=== PATIENT | female | born 1950 | race Caucasian/White ===

== ENCOUNTER 2019-09-10 02:56 | Emergency (ER) | payer MEDICARE, SELFPAY ==
[2019-09-10 02:55] VITALS: BP 148/78; PULSE 78; RESP 18; TEMP 36.3; O2SAT 100
--- NOTE | 2019-09-10 03:04 | ED.GENADULT ---
HPI - General Adult General Chief complaint: Abdominal Pain Stated complaint: abd Time Seen by Provider: 09/10/19 03:04 History of Present Illness HPI narrative: EMS called to her house for abdominal pain. She was reportedly on the ground in the bathroom in too much pain to get up. When EMS arrived to her house the pain had nearly resolved, but she asked to be transported anyway. She was fine for most of the ride, then became nauseated just before arriving her. On my arrival to the room she denies any pain or nausea. She says only the she does not feel well, but she denies any specific complaints. Family states that she has had one prior episode like this, which was determined to be a panic attack. Related Data Home Medications Medication Instructions Recorded Confirmed cholecalciferol (vitamin D3) 50 2,000 unit PO DAILY 06/26/19 mcg (2,000 unit) tablet fluticasone fur. 100 mcg-umeclid 1 inhalation INHALATION Q24H 06/26/19 62.5 mcg-vilant 25 mcg inhalat.powder trazodone 50 mg tablet 50 mg PO TID 06/26/19 Allergies Allergy/AdvReac Type Severity Reaction Status Date / Time Penicillins Allergy Unknown Skin Verified 06/26/19 08:45 Reaction Sulfa (Sulfonamide Allergy Unknown Skin Verified 06/26/19 08:45 Antibiotics) Reaction Shrimp Allergy Intermediate RASH Uncoded 06/26/19 08:45 Contrast Media Allergy Unknown RASH Uncoded 06/26/19 08:45 Review of Systems Review of Systems: All systems reviewed & are unremarkable except as noted in HPI and below Constitutional: Constitutional: Denies fever(s) Eyes: Eyes: Denies change in vision Cardiovascular: Cardiovascular: Denies chest pain Respiratory: Respiratory: Denies dyspnea Gastrointestinal: Gastrointestinal: Reports abdominal pain (resolved), Reports nausea (resolved) and Denies vomiting Genitourinary: Genitourinary: Denies dysuria Neurologic: Denies syncope and Denies weakness [facility] Surgical History Surgical History H/O discectomy History of appendectomy Hx of cholecystectomy Family History Family History Father Hypertension Family history of cardiovascular disease Mother Hypertension Family history of elevated blood lipids Social History Social History Smoking status: Former smoker Alcohol intake: never Exam Const: General: no acute distress and alert Nutritional Appearance: thin Orientation/consciousness: patient oriented x3 HENMT: Head: normal to inspection Eyes: Conjunctivae: conjunctivae normal Pupils: Equal, round and reactive pupils present EOM: EOMs intact bilaterally Resp: Effort & Inspection: normal respiratory effort Auscultation: clear to auscultation bilaterally Cardio: Rate: regular rate Rhythm: regular rhythm GI: GI Palp: Yes Soft to palpation and No Tenderness to palpation present (GI) Skin: General skin exam: normal color Neuro: General: patient oriented x3 and moves all extremities Speech: normal speech Extrem: General: normal to inspection Course Vital Signs Vital signs: Vital Signs Temperature 36.3 C L 09/10/19 02:55 Pulse Rate 78 09/10/19 02:55 Respiratory Rate 18 09/10/19 02:55 Blood Pressure 148/78 H 09/10/19 02:55 Pulse Oximetry 100 09/10/19 02:55 Temperature 36.3 C L 09/10/19 02:55 Pulse Rate 84 09/10/19 05:10 Respiratory Rate 17 09/10/19 05:10 Blood Pressure 123/86 09/10/19 05:10 Pulse Oximetry 99 09/10/19 05:10 Medical Decision Making MDM Narrative Medical decision making narrative: Labs unremarkable. She has been asymptomatic since arrival. Family agrees that she seems to be her normal self. Medical Records Medical records reviewed: Yes I reviewed the patient's medical records. Vital Signs Vital Signs: Vital Signs Temperature 36.3 C L 09/10/19 02:55 Pulse Rate
[2019-09-10 03:22] LABS: Basophils Percent Auto 0.7 % (0.2-1.2); Eosinophils Absolute Auto 0.2 K/mm3 (0-0.3); Eosinophils Percent Auto 3.3 % (0-4.4); Hematocrit 32.5 % (37.0-47.0); Hemoglobin 10.2 g/dL (12.0-15.0); Immature Granulocyte Absolute 0.02 K/mm3 (0.00-0.031); Immature Granulocyte Percent A 0.3 % (0-0.5); Lymphocytes Absolute Auto 1.25 K/mm3 (0.9-3.2); Lymphocytes Percent Auto 21.4 % (18.3-44.2); Mean Corpuscular HGB Conc 31.4 g/dl (32-36); Mean Corpuscular Hemoglobin 26.5 pg (26-34); Mean Corpuscular Volume 84.4 fl (80-100); Mean Platelet Volume 11.2 fl (7.4-10.4); Monocytes Absolute Auto 0.6 K/mm3 (0.1-0.6); Monocytes Percent Auto 9.4 % (2.6-8.5); Neutrophils Absolute Auto 3.8 K/mm3 (1.3-6.7); Neutrophils Percent Auto 64.9 % (45.5-73.1); Platelet Count Result 272 k/mm3 (150-375); Red Blood Count 3.85 M/mm3 (4.2-5.4); White Blood Count 5.8 K/mm3 (4.5-10.0)
[2019-09-10 03:34] LABS: Alanine Aminotransferase 18 U/L (4-35); Albumin Level 4.3 g/dL (3.5-5.1); Alkaline Phosphatase 86 U/L (38-126); Aspartate Amino Transferase 29 U/L (14-36); Bilirubin,Total 0.2 mg/dL (0.2-1.3); Blood Urea Nitrogen 11 mg/dL (7-17); Calcium 9.3 mg/dL (8.4-10.2); Carbon Dioxide 25 mmol/L (22-30); Chloride 105 mmol/L (98-107); Estimated CRCL calculation 39 ml/min; Estimated Glomerular Filt Rate > 60; Glucose 110 mg/dL (65-105); Lipase 91 U/L (23-300); Potassium 3.9 mmol/L (3.4-5.0); Sodium 139 mmol/L (137-145)
[2019-09-10 04:14] LABS: Add Urine Microscopic? YES; Appearance Urine Clear (Clear); Bilirubin Urine Negative (Negative); Blood Urine Negative (Negative); Color Urine Yellow (Yellow); Glucose Urine UA Negative (Negative); Ketones Urine Negative (Negative); Leukocyte Esterase Ur Negative LEU/UL (Negative); Mucus Urine Rare /lpf; Nitrate Urine Negative (Negative); Protein Urine 1+ mg/dL (Negative); RBC Urine 0-2 /hpf (0-2); Specific Grav Ur 1.023 (1.001-1.035); Squamous Epithelial Cell Urine Rare /hpf (Few); Urobilinogen Urine Negative mg/dL (<2.0); WBC Urine 0-3 /hpf
[2019-09-10 05:10] VITALS: BP 123/86; PULSE 84; RESP 17; O2SAT 99
== END 2019-09-10 05:15 | disposition home or self-care (01) ==
PROVIDERS: Emergency Provider Emergency Medicine; PCP Family Medicine
DX: F41.0 Panic disorder [episodic paroxysmal anxiety] (principal)
CPT/HCPCS: 36415; 80053; 81001; 83690; 85025; 99283

== ENCOUNTER → 2020-12-24 09:24 | Outpatient (CLI) | payer MEDICARE, SELFPAY ==
--- NOTE | ~2020-12-24 | XR_ITS ---
EXAMINATION: XR lumbar spine 6V w bending EXAM DATE: 12/24/2020 10:01 INDICATION: M54.9 - Dorsalgia, unspecified. TECHNIQUE: Lumber spine frontal, lateral, bilateral oblique projections. Coned down frontal and lat eral L5-S1 lumbar projections for interpretation. Additional lateral flexion and lateral extension pr ojections obtained. Comparison is made to prior examination from 12/08/2014. FINDINGS: There is L5-S1 posterior and interbody fusion. There is grade 2 anterolisthesis L4 on L5 on all the lateral projections. The right pars is confirmed intact, left obscured from hardware an obli que projection. There is similar amount of anterolisthesis on prior x-ray from 2014. There is severe loss of L4-5 disc height. Levels above this are well-maintained. Probable cholecystectomy clips. Sacr um, sacroiliac joints, sacral arcuate lines are intact. Probably advanced L4-5 facet arthropathy. Oth erwise mild lumbar facet arthropathy. Difficult to appreciate any significant interval change compare d to prior study. IMPRESSION: 1. L5-S1 fusion. 2. L4-5 advanced spondylosis, grade 2 anterolisthesis. Reviewed, dictated and finalized at location B.
== END ==
PROVIDERS: PCP Family Medicine; Visit Provider Family Medicine
DX: R29.898 Other symptoms and signs involving the musculoskeletal system (principal); Z98.1 Arthrodesis status; M47.816 Spondylosis without myelopathy or radiculopathy, lumbar region
CPT/HCPCS: 72114

== ENCOUNTER → 2021-02-27 09:46 | Outpatient (CLI) | payer MEDICARE, SELFPAY ==
--- NOTE | ~2021-02-27 | DEXA_ITS ---
Bone Density Report Name: Oliva Zapata Age: 70 Sex: Female Ethnicity: White Date of : 1950 Indication: postmenopausal; screening for osteoporosis; height loss; anorexia or bulimia; asthma or emphysema; Referring Provider: Bhupinder Soto Study: Bone densitometry was performed. Exam Date: February 27, 2021 Accession number: [id number] Bone Density: Region BMD T-score Z-score Classification AP Spine (L1, L2, L3) 0.809 -1.9 0.2 Osteopenia Femoral Neck (Left) 0.450 -3.6 -1.8 Osteoporosis Total Hip (Left) 0.565 -3.1 -1.5 Osteoporosis Femoral Neck (Right) 0.467 -3.4 -1.6 Osteoporosis Total Hip (Right) 0.594 -2.9 -1.3 Osteoporosis Total Hip Mean 0.580 -3.0 -1.4 Osteoporosis World Health Organization criteria for BMD impression classify patients as: Normal (T-score at or above -1.0), Osteopenia (T-score between -1.0 and -2.5), or Osteoporosis (T-score at or below -2.5). 10-year Fracture Risk: FRAX not reported because: Some T-score for Spine Total or Hip Total or Femoral Neck at or below -2.5 Clinical Information Provided by Patient: Has the following medical conditions: Anorexia or Bulimia, Asthma or Emphysema Patient maximum height was 62 Menopause Age: 40 No regular weight bearing exercise Drinks caffeinated beverages Onset of menses at age 15 Number of children 2 Impression: The patient has osteoporosis, based on the Left Femoral Neck T-score. Discussion: INCREASED RISK OF FRACTURE. BONE DENSITY IS UNDESIRABLY LOW AT ONE OR MORE SKELETAL SITES, CONSISTENT WITH POSTMENOPAUSAL OSTEOPOROSIS. This patient's lowest T-score meets the World Health Organization's (WHO) criteria for osteoporosis at one or more sites (T-score -2.5 or below). In untreated patients, the risk of osteoporotic fracture increases approximately two-fold for each 1.0 SD decrease in T-score. Low bone density is not the only risk factor for fracture; also consider factors such as patient's age, frailty or poor health, risk of falling, risk of injury, previous osteoporotic fracture, family history of osteoporosis, cigarette smoking, low body weight, etc. Not everyone with low bone mineral density has osteoporosis; osteomalacia and other metabolic bone disorders should also be considered. Patients who have osteoporosis should be evaluated for specific diseases and conditions (secondary causes) that may cause or contribute to bone loss. The [place] [employer]ocrinologists (AACE) and National Osteoporosis Foundation (NOF) recommend pharmacologic intervention for all postmenopausal women whose T-score is in this range. The patient should follow a healthful lifestyle (good nutrition with adequate calcium and vitamin D, and appropriate weight-bearing exercise). Follow-Up: Consider a repeat BMD and Vertebral Fracture Assess
--- NOTE | ~2021-02-27 | MM_ITS ---
EXAMINATION: MM screening rose BI w suzi HISTORY: Screening TECHNIQUE: Craniocaudal and mediolateral oblique 3-D tomosynthesis images were obtained and synthetic 2-D images were generated. CAD analysis was submitted and interpreted. COMPARISON: Comparison to multiple prior studies sequentially, with oldest reviewed study dated 03/17. BREAST PARENCHYMAL COMPOSITION: The breasts are heterogenously dense, which may obscure small masses FINDINGS: There is no evidence of suspicious mass, calcification, or architectural distortion to sugg est malignancy in either breast. There has been no suspicious interval change. IMPRESSION: 1. No mammographic evidence of malignancy. 2. Recommend routine screening mammography in one year. BI-RADS Category 1: Negative Reviewed, dictated and finalized at location A.
== END ==
PROVIDERS: PCP Family Medicine; Visit Provider Family Medicine
DX: Z12.31 Encounter for screening mammogram for malignant neoplasm of breast (principal); Z78.0 Asymptomatic menopausal state; M81.0 Age-related osteoporosis without current pathological fracture
CPT/HCPCS: 77063; 77067; 77080

== ENCOUNTER → 2021-08-23 07:37 | Outpatient (CLI) | payer MEDICARE, SELFPAY ==
--- NOTE | ~2021-08-23 | MR_ITS ---
EXAMINATION: MR brain/brain stem wo con DATE: 08/23/2021 08:28 INDICATION: Other abnormalities of gait and mobility. TECHNIQUE: Magnetic resonance imaging (MRI) of the brain and brainstem was performed without intraven ous contrast. Sequences included sagittal and axial T1-weighted FSE, axial diffusion-weighted FS EPI, axial T2*-weighted GRE, axial T2-weighted FLAIR Propeller, and axial T2-weighted Propeller. Apparent diffusion coefficient (ADC) maps were created. COMPARISON: None. FINDINGS: There is chronic encephalomalacia with old blood products involving the left basal ganglia and internal capsule. There are scattered areas of nonspecific increased T2-weighted signal intensity in the cerebral white matter and rony, which is within normal limits for the patient's age. There is no acute intracranial hemorrhage, acute infarction, or abnormal intracranial mass lesion. The ventri cles are normal in size. The orbits are normal. There is mild mucosal thickening in the paranasal sin uses. The mastoid air cells are normal. IMPRESSION: 1. Chronic encephalomalacia with old blood products involving the left basal ganglia and left interna l capsule. Reviewed, dictated and finalized at location A. 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 Chronic encephalomalacia with old blood products involving the left basal ga nglia and left internal capsule.
== END ==
PROVIDERS: PCP Family Medicine; Visit Provider Family Medicine
DX: R26.89 Other abnormalities of gait and mobility (principal); G93.89 Other specified disorders of brain
CPT/HCPCS: 70551

== ENCOUNTER 2021-12-07 08:01 | Outpatient (CLI) | payer MEDICARE, SELFPAY ==
--- NOTE | ~2021-12-07 | MR_ITS ---
EXAMINATION: MR lumbar spine wo con DATE: 12/07/2021 09:05 INDICATION: Low back pain. TECHNIQUE: Magnetic resonance imaging (MRI) of the lumbar spine was performed without intravenous con trast. Sequences included sagittal T2-weighted FSE, sagittal T2-weighted FS FSE, sagittal T1-weighted FSE, and axial T2-weighted FSE. COMPARISON: Lumbar spine MRI 04/09/2015 FINDINGS: There is 10 mm anterolisthesis of L4 on L5. There are changes of anterior and posterior fus ion procedures at L5-S1 with interbody devices and pedicle screws. The right-sided interbody device e xtends 3 mm posterior to the endplate in the right lateral recess and right neural foramen. There is severely decreased disc height at T11-T12 with endplate remodeling. There is severely decreased disc height at L4-L5 with endplate remodeling including 2/5 height loss of L4 and 1/5 height loss of L5. T he L5 pedicle screws abut the inferior aspect of L4 vertebral body. The distal spinal cord signal int ensity is normal. The conus medullaris is at L1. The following disc levels are specifically discussed : T11-T12: There is a central protrusion. There is mild bilateral facet joint osteoarthritis. There is no neural foraminal stenosis. There is mild central canal stenosis. L1-L2: The disc does not extend beyond the endplate margin. There is mild bilateral facet joint osteo arthritis. There is no neural foraminal stenosis. There is no central canal stenosis. L2-L3: The disc is bulging. There is mild bilateral facet joint osteoarthritis. There is mild bilater al neural foraminal stenosis. There is no central canal stenosis. L3-L4: The disc is bulging. There is moderate bilateral facet joint osteoarthritis. There is mild enrico ateral neural foraminal stenosis. There is mild central canal stenosis. L4-L5: The disc does not extend beyond the endplate margin. There is severe bilateral facet joint ost eoarthritis. There is moderate bilateral neural foraminal stenosis. There is mild central canal steno sis. L5-S1: There is no facet joint hypertrophy. There is mild right neural foraminal stenosis. There is n o central canal stenosis. There is posterior decompression. IMPRESSION: 1. Severe lumbar spondylosis, stable from 04/09/2015. 2. Severe spondylosis at T11-T12, worsened from 04/09/2015. 3. Anterior and posterior fusion procedures at L5-S1. Reviewed, dictated and finalized at location B.
== END 2021-12-07 08:02 ==
LOC: MICIMG 08:02
PROVIDERS: PCP Family Medicine; Visit Provider Family Medicine
DX: M47.896 Other spondylosis, lumbar region (principal); Z98.1 Arthrodesis status
CPT/HCPCS: 72148

== ENCOUNTER 2022-01-24 16:21 | Emergency (ER) | payer MEDICARE, SELFPAY ==
[2022-01-24] VITALS (10 sets, daily range): BP systolic 118–130; BP diastolic 68–81; PULSE 83–95; RESP 15–30; TEMP 36.3; O2SAT 98–100
--- NOTE | ~2022-01-24 | XR_ITS ---
EXAMINATION: XR chest 1V portable Exam Date/Time: 01/24/2022 17:20 CDT HISTORY: dypnea, HX COPD, HX CVA, PT IS FEELING DIZZY Comparison: 04/08/2019. RESULT: Lines, tubes, and devices: None. Lungs and pleura: Clear. Cardiomediastinal silhouette: Stable cardiomediastinal silhouette. Other: No acute osseous or upper abdominal finding. IMPRESSION: No acute cardiopulmonary process. Reviewed, dictated and finalized at location K.
--- NOTE | ~2022-01-24 | CT_ITS ---
EXAMINATION: CT brain wo con DATE: 01/24/2022 17:41 INDICATION: vertigo and confusion hx of CVA . TECHNIQUE: Computed tomography (CT) of the head was performed without intravenous contrast. The mA wa s adjusted according to patient size. Iterative reconstruction technique was employed. The dose-lengt h product was 605.33 mGy-cm. COMPARISON: MR brain 08/23/2021 FINDINGS: No acute intracranial hemorrhage or extra-axial fluid collection. No hydrocephalus, mass, or herniation. No acute ischemic infarct. Unremarkable dural venous sinus attenuation. No acute osseous abnormality. The aerated spaces are clear. Moderate atrophy and mild chronic white matter change. Subtle malacia in the left basal ganglia and i nternal capsule. Atherosclerotic intracranial calcifications. IMPRESSION: No acute intracranial process. Reviewed, dictated and finalized at location K.
--- NOTE | 2022-01-24 16:45 | ECG_ITS ---
Measurements Intervals [place] Rate: 90 P: 68 MS: 189 QRS: 9 QRSD: 95 T: 17 QT: 361 QTc: 442 Interpretive Statements SINUS RHYTHM BORDERLINE T WAVE ABNORMALITY- ANT/INF LEADS BORDERLINE ECG Electronically Signed On 01-24-2022 20:49:10 CDT by Ken Rosenberg D.O.
[2022-01-24 17:05] LABS: Alveolar/Arterial O2 Gradient 28.5 mmHg; Carboxyhemoglobin 0.2 % THb (0-2.0); Fractional Inspired Oxygen 21 %; HCO3 ABG 23.4 mEq/l (22.0-26.0); Methemoglobin ABG 0.2 %THb (0-1.5); Oxygen Saturation ABG 95.4 % (95.0-100.0); Oxyhemoglobin 94.7 % THb (90.0-100.0); PCO2 ABG 37.8 mmHg (35.0-45.0); PO2 FiO2 Ratio Arterial Blood 3.62 %; Reduced Hemoglobin 4.9 %THb (0-5.0); Total Hemoglobin 11.2 g/dL (12.0-18.0)
[2022-01-24 17:06] LABS: Device ROOM AIR; Modified Allen's Test Pass; Site Drawn RIGHT RADIAL
--- NOTE | 2022-01-24 17:07 | ED.DIZZY ---
HPI - Dizziness General Chief Complaint: Dizziness Stated Complaint: Confusion, Difficulty Breathing Time Seen by Provider: 01/24/22 16:33 Source: patient and family History of Present Illness HPI Narrative: Patient presents with not feeling well. Patient was talking to family members around 12:00 and was acting normal per family she went to rest fell asleep and then woke up a little after 3:00 and reports feeling not right . Patient is having a hard time describing her symptoms. Reports she fell dizzy like she is off balance but she occasionally has that she denies any focal areas of pain she denies any shortness of breath or lightheadedness chest where she felt very confused during that time was unable to specific examples regarding her confusion. She did call family. Family noted on the phone she seemed like she is having a hard time breathing they came over to evaluate her and she seemed pale and was working very hard to breathe so they gave her a nebulized therapy and brought her to the ER for evaluation. They report at the time he arrived to the ER patient was feeling much better and they did consider just turning around and going home. Patient reports prior to today's events she was in her usual state of health denies any recent fevers, cough, congestion, nausea, vomiting, change appetite, diarrhea, urinary symptoms. Patient does report a history of CVA she is currently being evaluated as an outpatient and sees Dr. Moreno. She does have carotid ultrasound scheduled for next week Related Data Home Medications Medication Instructions Recorded Confirmed cholecalciferol (vitamin D3) 50 2,000 unit PO DAILY 06/26/19 08/16/21 mcg (2,000 unit) tablet Allergies Allergy/AdvReac Type Severity Reaction Status Date / Time Penicillins Allergy Unknown Skin Verified 01/24/22 16:37 Reaction Sulfa (Sulfonamide Allergy Unknown Skin Verified 01/24/22 16:37 Antibiotics) Reaction Shrimp Allergy Intermediate RASH Uncoded 01/24/22 16:37 Contrast Media Allergy Unknown RASH Uncoded 01/24/22 16:37 Review of Systems Review of Systems: CONSTITUTIONAL: Denies fever, chills, or sweats. EYES: Denies visual changes, redness, or discharge. ENT: Denies rhinorrhea, congestion, sore throat, or otalgia. CARDIOVASCULAR: Denies chest pain, palpitations, or edema. RESPIRATORY: Denies cough or dyspnea. GASTROINTESTINAL: Denies abdominal pain, nausea, vomiting, or diarrhea. GENITOURINARY: Denies dysuria or hematuria. SKIN: Denies rash or itching. MUSCULOSKELETAL: Denies back pain, joint pain, or myalgia. NEUROLOGIC: Denies headache, numbness, or weakness. PSYCHIATRIC: Denies anxiety or depression. All systems reviewed & are unremarkable except as noted in HPI and below PMFSH Surgical History Surgical History H/O discectomy History of appendectomy Hx of cholecystectomy Family History Family History Father Hypertension Family history of cardiovascular disease Mother Hypertension Family history of elevated blood lipids Social History Social History Social History: former smoker Smoking status: Former smoker Alcohol intake: former Substance use type: painkillers Gender identity (if verbalized by the patient): Female Exam Narrative: GENERAL: Well-appearing, well-nourished, and in no acute distress. HEAD: Normocephalic, atraumatic. EYES: PERRLA and EOMI. ENT: Nares clear, no rhinorrhea or epistaxis. Mucous membranes moist. NECK: Supple. No masses. No JVD CHEST: Clear to auscultation. No respiratory distress. No wheezes rales or rhonchi HEART: Regular rate and rhythm. No murmur heard. Normal peripheral pulses. ABDOMEN: Soft, nontender, nondistended, normal active bowel sounds. EXTREMITIES: Normal range of motion. No edema. SKIN: Warm, dry, no rash. NEURO
[2022-01-24 17:29] LABS: Basophils Percent Auto 0.8 % (0.2-1.2); Eosinophils Percent Auto 0.2 % (0-4.4); Hematocrit 33.3 % (37.0-47.0); Hemoglobin 10.4 g/dL (12.0-15.0); Immature Granulocyte Absolute 0.01 K/mm3 (0.00-0.031); Immature Granulocyte Percent A 0.2 % (0-0.5); Lymphocytes Absolute Auto 1.08 K/mm3 (0.9-3.2); Lymphocytes Percent Auto 20.8 % (18.3-44.2); Mean Corpuscular HGB Conc 31.2 g/dl (32-36); Mean Corpuscular Hemoglobin 27.4 pg (26-34); Mean Corpuscular Volume 87.6 fl (80-100); Mean Platelet Volume 10.7 fl (7.4-10.4); Monocytes Absolute Auto 0.5 K/mm3 (0.1-0.6); Monocytes Percent Auto 9.6 % (2.6-8.5); Neutrophils Absolute Auto 3.6 K/mm3 (1.3-6.7); Neutrophils Percent Auto 68.4 % (45.5-73.1); Platelet Count Result 254 k/mm3 (150-375); Red Cell Distribution Width 13.7 % (11.5-14.5); White Blood Count 5.2 K/mm3 (4.5-10.0)
[2022-01-24 17:43] LABS: Bacteria Urine 4+ /hpf; Mucus Urine Heavy /lpf; RBC Urine >75 /hpf (0-2); WBC Urine 16-20 /hpf
[2022-01-24 17:44] LABS: Add Urine Microscopic? YES; Appearance Urine Cloudy (Clear); Bilirubin Urine 1+ (Negative); Blood Urine 3+ (Negative); Color Urine Red (Yellow); Glucose Urine UA Negative (Negative); Ketones Urine Negative (Negative); Leukocyte Esterase Ur 2+ LEU/UL (Negative); Nitrate Urine Negative (Negative); Protein Urine Negative (Negative); pH Urine 6.5 (5.0-9.0)
[2022-01-24 17:47] LABS: Alanine Aminotransferase 12 U/L (6-35); Albumin Level 4.3 g/dL (3.5-5.1); Alkaline Phosphatase 73 U/L (38-126); Anion Gap 5 mmol/L (8-16); Aspartate Amino Transferase 23 U/L (14-36); Bilirubin,Total 0.1 mg/dL (0.2-1.3); Blood Urea Nitrogen 11 mg/dL (7-17); Calcium 8.7 mg/dL (8.4-10.2); Carbon Dioxide 26 mmol/L (22-30); Chloride 108 mmol/L (98-107); Estimated CRCL calculation 36 ml/min; Estimated Glomerular Filt Rate > 60; Glucose 106 mg/dL (65-110); Potassium 3.3 mmol/L (3.4-5.0); Sodium 139 mmol/L (137-145)
[2022-01-24 17:50] LABS: Glucose Point of Care 114 mg/dl (65-105)
[2022-01-24] MEDS: CEPHALEXIN 500 MG CAPSULE PO (18:36)
== END 2022-01-24 18:38 | disposition home or self-care (01) ==
PROVIDERS: Emergency Provider Emergency Medicine; PCP Family Medicine
DX: N39.0 Urinary tract infection, site not specified (principal); R41.0 Disorientation, unspecified; Z87.891 Personal history of nicotine dependence
CPT/HCPCS: 36415; 36600; 70450; 71045; 80053; 81001; 82375; 82805; 82948; 83050; 85025; 87077; 87086; 87186; 93005; 99284; A9270

== ENCOUNTER 2022-02-16 13:39 | Outpatient (CLI) | payer MEDICARE, SELFPAY ==
--- NOTE | ~2022-02-16 | US_ITS ---
EXAMINATION: US carotid duplex BI DATE: 02/16/2022 14:30 INDICATION: Cerebral infarct TECHNIQUE: Grayscale, color Doppler, and pulsed Doppler images of the cervical carotid arteries were obtained. The degree of vessel stenosis is placed in one of the following categories: normal, <50%, 5 0-69%, >=70% but less than near-occlusion, near-occlusion, or total occlusion. Note that percent sten osis relative to normal distal artery lumen diameter is indirectly measured from velocity measurement s as described by Samuel, et al. Radiology 2003; 229:340-346. COMPARISON: None. FINDINGS: RIGHT: The right common carotid artery (CCA) peak systolic velocity (PSV) is 94 cm/s. The right internal car otid artery (ICA) PSV is 101 cm/s. The right ICA end-diastolic velocity (EDV) is 40 cm/s. The right I CA/CCA PSV ratio is 1.1. Grayscale and color Doppler images yield an estimate of <50% diameter reduct ion from plaque in the ICA. The external carotid artery (ECA) PSV is 60 cm/s. There is antegrade flow in the right vertebral artery. LEFT: The left CCA PSV is 105 cm/s. The left ICA PSV is 142 cm/s. The left ICA EDV is 52 cm/s. The left ICA /CCA PSV ratio is 1.4. Grayscale and color Doppler images including secondary Doppler criteria yield an estimate of <50% diameter reduction from plaque in the ICA. The ECA PSV is 66 cm/s. There is anteg rade flow in the left vertebral artery. IMPRESSION: 1. <50% stenosis in the right internal carotid artery. 2. <50% stenosis in the left internal carotid artery. Reviewed, dictated and finalized at location A.
== END 2022-02-16 13:40 | disposition home or self-care (01) ==
PROVIDERS: PCP Family Medicine; Visit Provider Psychiatry & Neurology Neurology
DX: I63.9 Cerebral infarction, unspecified (principal); I65.23 Occlusion and stenosis of bilateral carotid arteries
CPT/HCPCS: 93880

== ENCOUNTER 2022-03-22 11:54 | Outpatient (CLI) | payer MEDICARE, SELFPAY ==
[2022-03-22 19:15] LABS: LDL Cholesterol Direct 85 mg/dL
[2022-03-22 19:34] LABS: Thyroid Stimulating Hormone 0.674 uIU/mL (0.465-4.680)
[2022-03-22 22:25] LABS: Anion Gap 0 mmol/L (8-16); Blood Urea Nitrogen 11 mg/dL (7-17); Carbon Dioxide 31 mmol/L (22-30); Chloride 105 mmol/L (98-107); Cholesterol 186 mg/dL (0-200); Estimated Glomerular Filt Rate 55; HDL Direct 59 mg/dL; Potassium 4.4 mmol/L (3.4-5.0); Sodium 136 mmol/L (137-145); Triglycerides 162 mg/dL (<150)
[2022-03-23 08:55] LABS: Glucose 57 mg/dL (65-110)
== END 2022-03-22 11:55 | disposition home or self-care (01) ==
LOC: ANHGOSHLAB 11:58
PROVIDERS: PCP Family Medicine; Visit Provider Family Medicine
DX: E87.6 Hypokalemia (principal); E03.9 Hypothyroidism, unspecified; E78.2 Mixed hyperlipidemia
CPT/HCPCS: 36415; 80048; 80061; 84443

== ENCOUNTER 2023-09-20 10:01 | Outpatient (CLI) | payer MEDICARE, SELFPAY ==
--- NOTE | ~2023-09-20 | CT_ITS ---
EXAMINATION: CT lung screening DATE: 09/20/2023 10:22 INDICATION: Z87.891 - Personal history of nicotine dependence TECHNIQUE: Computed tomography (CT) of the chest was performed without intravenous contrast. Addition al 3D reconstructions utilizing coronal maximum intensity projection (MIP) were performed. Automated exposure control and iterative reconstruction technique were employed. The dose-length product was 57 .16 mGy-cm. COMPARISON: None FINDINGS: There are small calcified nodules in the left upper and bilateral lower lobes consistent with old gra nulomatous disease. Additional 2 mm left upper lobe nodule which is not definitively calcified on ser ies 4, image 45. No pneumonia, pulmonary edema or pleural effusion. Heart size is normal. Atheroscler otic coronary artery calcific location and aortic valve calcific location. No pericardial effusion. T horacic aorta is normal in caliber. Moderate-sized sliding-type hiatal hernia. No pathologically enla rged thoracic lymphadenopathy. Cholecystectomy clips at the gallbladder fossa. Severe cervical and th oracic spondylosis. IMPRESSION: 1. Lung-RADS category 2: Benign appearance or behavior. Continue annual screening with noncontrast lo w-dose chest CT in 12 months. 2. Moderate-sized sliding-type hiatal hernia. Reviewed, dictated and finalized at location B. 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 Lung-RADS category 2: Benign appearance or behavior. Continue annual screeni ng with noncontrast low-dose chest CT in 12 months. 2. Moderate-sized sliding-type hiatal hernia.
== END 2023-09-20 10:02 | disposition home or self-care (01) ==
PROVIDERS: PCP Family Medicine; Visit Provider Physician Assistant
DX: Z12.2 Encounter for screening for malignant neoplasm of respiratory organs (principal); K44.9 Diaphragmatic hernia without obstruction or gangrene; Z87.891 Personal history of nicotine dependence
CPT/HCPCS: 71271

== ENCOUNTER 2023-10-02 08:28 | Emergency (ER) | payer MEDICARE, SELFPAY ==
--- NOTE | ~2023-10-02 | XR_ITS ---
EXAMINATION: XR thoracic spine 3V DATE: 10/02/2023 09:22 INDICATION: Left mid back pain post fall 2 days prior TECHNIQUE: One AP, lateral and lateral swimmer's views of the thoracic spine were obtained. COMPARISON: Chest CT dated 09/20/2023 FINDINGS: 15 degrees upper thoracic levoscoliosis with severe associated spondylosis. Mild to moderate spondylo sis in the more caudal thoracic spine. Chronic mild right-sided vertebral body height loss at T8 and mild left-sided vertebral body height loss at T6. Visualized portions of the lungs are clear with no pleural effusion or pneumothorax. Heart size is normal. Cholecystectomy clips in right upper quadrant . IMPRESSION: 1. 15 degrees upper thoracic levoscoliosis with severe spondylosis. 2. Chronic mild vertebral body height loss in the left at T6 and right at T8. No evident acute osseou s abnormality. Reviewed, dictated and finalized at location B. IMPRESSION: 1. 15 degrees upper thoracic levoscoliosis with severe spondylosis. 2. Chronic mild vertebral body height loss in the left at T6 and right at T8. N o evident acute osseous abnormality.
[2023-10-02 08:37] VITALS: BP 124/78; PULSE 66; PULSE 78; RESP 16; TEMP 36.8; O2SAT 100
[2023-10-02 08:46] VITALS: BP 136/88; PULSE 70; RESP 14; O2SAT 100
[2023-10-02] MEDS: IBUPROFEN 600 MG TABLET PO (08:50)
[2023-10-02 09:01] VITALS: BP 139/61; PULSE 75; RESP 16; O2SAT 100
--- NOTE | 2023-10-02 09:09 | ED.BACK ---
HPI - Back Pain/Injury General Chief Complaint: Back Pain/Injury Stated Complaint: left mid back pain, fell a couple days ago Time Seen by Provider: 10/02/23 08:33 History of Present Illness HPI Narrative: Patient is a 73-year-old female who presents ER with back pain. Midthoracic on the left sign. Worse with physical movement. She reports she was walking when she lost her balance and fell. She is unsure if she fell onto her bottom or directly onto her back. She reports pain has increased over last 2 days. It does improve when she takes ibuprofen. No lower extremity numbness or weakness. No difficulty with urination or defecation. Related Data Allergies Allergy/AdvReac Type Severity Reaction Status Date / Time Penicillins Allergy Unknown Skin Verified 09/13/23 13:45 Reaction Sulfa (Sulfonamide Allergy Unknown Skin Verified 09/13/23 13:45 Antibiotics) Reaction Shrimp Allergy Intermediate RASH Uncoded 09/13/23 13:45 Contrast Media Allergy Unknown RASH Uncoded 09/13/23 13:45 Review of Systems Constitutional: Constitutional: Reports no additional constitutional complaints Cardiovascular: Cardiovascular: Reports no additional cardiovascular complaints Respiratory: Respiratory: Reports no additional respiratory complaints Gastrointestinal: Gastrointestinal: Reports no additional gastrointestinal complaints Musculoskeletal: Musculoskeletal: Reports back pain, Denies arthralgias and Denies joint swelling [facility] Past Medical History Medical History Impaction of the bowels Left thalamic infarction Surgical History Surgical History H/O discectomy History of appendectomy Hx of cholecystectomy Family History Family History Father Hypertension Family history of cardiovascular disease Mother Hypertension Family history of elevated blood lipids Social History Social History (Updated 09/13/23 @ 13:47 by Damaris Worthington MA) Social History: former smoker Smoking status: Former smoker Alcohol intake: former Substance use type: painkillers Do You Feel Safe in your Home?: Yes Lack of Transportation: No Lack of Food: Never True Current Housing: I Have Housing Concerned About Future Housing: No Difficulty Paying Gas/Electric Bills: No Difficulty Paying for Meds: No Currently Unemployed: No Education: High School Diploma/GED Difficulty w/ Childcare or Family Care: No Gender identity (if verbalized by the patient): Female Exam Narrative: GENERAL: Well-appearing, well-nourished, and in no acute distress. HEAD: Normocephalic, atraumatic. ENT: Mucous membranes moist. CHEST: Clear to auscultation. No respiratory distress. HEART: Regular rate and rhythm. Normal peripheral pulses. Back: No midline tenderness at T/L-spine. There is tenderness on the left side of the back near T8. No bruising or abrasions. No step-offs to the spinal column. EXTREMITIES: Normal range of motion. No edema. SKIN: Warm, dry, no rash. NEURO: Alert and oriented x3. PSYCH: Normal mood and affect. Course Course Emergency Course: Discussed imaging results in chronic findings. Will manage discomfort with anti-inflammatories and muscle relaxers. Discharged home. Vital Signs Vital signs: Vital Signs Temperature 98.2 F 10/02/23 08:37 Pulse Rate 78 10/02/23 08:37 Respiratory Rate 16 10/02/23 08:37 Blood Pressure 124/78 10/02/23 08:37 Pulse Oximetry 100 10/02/23 08:37 Oxygen Delivery Room Air 10/02/23 08:37 Temperature 98.2 F 10/02/23 08:37 Pulse Rate 78 10/02/23 08:37 Respiratory Rate 16 10/02/23 08:37 Blood Pressure 124/78 10/02/23 08:37 Pulse Oximetry 100 10/02/23 08:37 Oxygen Delivery Room Air 10/02/23 08:37 MDM - Back Pain/Injury Imaging Data Radiologist
[2023-10-02 09:26] VITALS: BP 128/76; PULSE 76; RESP 14; O2SAT 100
[2023-10-02 09:31] VITALS: BP 126/76
[2023-10-02 10:01] VITALS: BP 125/71
== END 2023-10-02 10:24 | disposition home or self-care (01) ==
PROVIDERS: Emergency Provider Emergency Medicine; PCP Family Medicine
DX: S29.012A Strain of muscle and tendon of back wall of thorax, initial encounter (principal); Z87.891 Personal history of nicotine dependence; Z90.49 Acquired absence of other specified parts of digestive tract; M47.814 Spondylosis without myelopathy or radiculopathy, thoracic region; W18.39XA Other fall on same level, initial encounter
CPT/HCPCS: 72072; 99283; A9270

== ENCOUNTER 2023-10-02 22:40 | Emergency (ER) | payer MEDICARE, SELFPAY ==
--- NOTE | ~2023-10-02 | CT_ITS ---
EXAMINATION: CT thoracic lumbar wo con DATE: 10/02/2023 23:29 INDICATION: midline tenderness . TECHNIQUE: Computed tomography (CT) of the thoracic and lumbar spine was performed without intravenou s contrast. The dose-length product was 252.91 mGy-cm. COMPARISON: CT chest 09/20/2023; MR L-spine 12/07/2021 FINDINGS: THORACIC SPINE: Vertebral body alignment intact. Exaggerated thoracic kyphosis. Mild thoracic scoliosis. Vertebral arturo dy heights preserved. Multilevel moderate disc space narrowing. No traumatic malalignment or fracture . Visualized lung parenchyma is clear. Large hiatal hernia. Aortic valve and coronary artery calcific ations. 5 mm right lower lobe pulmonary nodule previously reported as a partially calcified granuloma in the prior CT lung screening exam. LUMBAR SPINE: Posterior lumbar fusion hardware at L5-S1. The inferior pedicle screws project beyond the anterior co rtex. Grade 2 anterolisthesis at L4-5. Severe degenerative disc disease at L4-5. Interbody fusion at L5-S1. 5 nonrib-bearing lumbar-type vertebral bodies. Pedicles intact. Vertebral body heights preserv ed. Moderate bilateral neural foraminal narrowing and central canal narrowing at L4-5. Mild facet art hropathy at L4-5. No traumatic malalignment or fracture. Diverticulosis. Atherosclerotic aortic and a rterial calcifications. Status post cholecystectomy. IMPRESSION: No acute fracture recommended malalignment in the thoracic or lumbar spine. No severe central canal or neural foraminal narrowing. Reviewed, dictated and finalized at location K.
[2023-10-02 22:43] VITALS: BP 149/55; PULSE 107; RESP 18; TEMP 36.3; O2SAT 100
--- NOTE | 2023-10-02 23:34 | ED.GENADULT ---
HPI - General Adult General Chief complaint: Back Pain/Injury Stated complaint: back pain Time Seen by Provider: 10/02/23 22:52 Source: patient Mode of arrival: ambulatory Limitations: no limitations History of Present Illness HPI narrative: This is a 73-year-old female who presents to the ED with chief complaint of mid to low back pain onset x3 days. Patient reports that she had initial injury where she fell onto the back. Reports the pain is just not going away. She was seen here earlier today with thoracic x-ray that did not show any acute findings. She tried taking the muscle relaxer with no relief. States that she was not able to get to sleep tonight so she is back here now. Denies fevers, chills, any further injury or site of pain. Denies numbness, weakness, bowel or bladder dysfunction, radicular symptoms. Related Data Allergies Allergy/AdvReac Type Severity Reaction Status Date / Time Penicillins Allergy Unknown Skin Verified 09/13/23 13:45 Reaction Sulfa (Sulfonamide Allergy Unknown Skin Verified 09/13/23 13:45 Antibiotics) Reaction Shrimp Allergy Intermediate RASH Uncoded 09/13/23 13:45 Contrast Media Allergy Unknown RASH Uncoded 09/13/23 13:45 Review of Systems Review of Systems: All systems as dictated in [facility] Past Medical History Medical History Impaction of the bowels Left thalamic infarction Surgical History Surgical History H/O discectomy History of appendectomy Hx of cholecystectomy Family History Family History Father Hypertension Family history of cardiovascular disease Mother Hypertension Family history of elevated blood lipids Social History Social History (Updated 09/13/23 @ 13:47 by Damaris Worthington MA) Social History: former smoker Smoking status: Former smoker Alcohol intake: former Substance use type: painkillers Do You Feel Safe in your Home?: Yes Lack of Transportation: No Lack of Food: Never True Current Housing: I Have Housing Concerned About Future Housing: No Difficulty Paying Gas/Electric Bills: No Difficulty Paying for Meds: No Currently Unemployed: No Education: High School Diploma/GED Difficulty w/ Childcare or Family Care: No Gender identity (if verbalized by the patient): Female Exam Narrative: GENERAL: Well-appearing, well-nourished, and in no acute distress. HEAD: Normocephalic, atraumatic. EYES: PERRLA and EOMI. ENT: Nares clear, no rhinorrhea or epistaxis. Mucous membranes moist. Oropharynx without tonsillar hypertrophy exudate or other lesions. NECK: Supple. No adenopathy or masses. CHEST: No respiratory distress. Clear to auscultation. No wheezes rales or rhonchi HEART: Regular rate and rhythm. No murmur heard. Normal peripheral pulses. ABDOMEN: Soft, nontender, nondistended, normal active bowel sounds. MSK: Midline tenderness to the thoracic and lumbar spine. No step-off or deformity. No bruising. SKIN: Warm, dry, no rash. NEURO: Alert and oriented x3. No focal deficits. 5/5 strength and sensation to the upper and lower extremities. PSYCH: Normal mood and affect. Course Vital Signs Vital signs: Vital Signs Temperature 97.4 F L 10/02/23 22:43 Pulse Rate 107 H 10/02/23 22:43 Respiratory Rate 18 10/02/23 22:43 Blood Pressure 149/55 H 10/02/23 22:43 Pulse Oximetry 100 10/02/23 22:43 Oxygen Delivery Room Air 10/02/23 22:43 Temperature 97.4 F L 10/02/23 22:43 Pulse Rate 107 H 10/02/23 22:43 Respiratory Rate 18 10/02/23 22:43 Blood Pressure 149/55 H 10/02/23 22:43 Pulse Oximetry 100 10/02/23 22:43 Oxygen Delivery Room Air 10/02/23 22:43 Medical Decision Making MDM Narrative Medical decision making narrative: This is a 73-year-old female who presents to the ED with c
[2023-10-02] MEDS: HYDROcodone/acetaminophen (*CRX) 5-325 MG TABLET 1 TAB PO (23:36)
[2023-10-02] MEDS: ACETAMINOPHEN 325 MG TABLET 650 MG PO (23:37)
== END 2023-10-03 00:24 | disposition home or self-care (01) ==
LOC: ANHED 10-03 00:15
PROVIDERS: Emergency Provider Physician Assistant; PCP Family Medicine
DX: S29.012A Strain of muscle and tendon of back wall of thorax, initial encounter (principal); S39.012A Strain of muscle, fascia and tendon of lower back, initial encounter; Z90.49 Acquired absence of other specified parts of digestive tract; Z87.891 Personal history of nicotine dependence
CPT/HCPCS: 72072; 72128; 72131; 99284; A9270

== ENCOUNTER 2024-06-26 02:11 | Observation (INO) | payer MEDICARE, SELFPAY ==
[2024-06-26] VITALS (15 sets, daily range): BP systolic 91–117; BP diastolic 50–63; PULSE 75–128; RESP 16–21; TEMP 36.7–38.4; O2SAT 95–100; BMI 19.1
--- NOTE | ~2024-06-26 | US_ITS ---
EXAMINATION: US right upper quadrant DATE: 06/26/2024 16:19 INDICATION: Abdominal pain. TECHNIQUE: Multiple grayscale and Doppler ultrasound images of the abdomen were obtained. COMPARISON: CT abdomen and pelvis 06/26/2024 FINDINGS: The visualized portions of the head and body of pancreas are normal. The liver is normal wi thout focal lesion. There is normal flow in main portal vein. The gallbladder is absent. The common d uct is normal and measures 8 mm. IMPRESSION: 1. Normal right upper quadrant ultrasound status post cholecystectomy. Reviewed, dictated and finalized at location A. GER UTILIZATION MANAGEMENT
--- NOTE | ~2024-06-26 | CT_ITS ---
EXAMINATION: CT brain wo con DATE: 06/28/2024 14:34 INDICATION: Confusion. Headache. TECHNIQUE: Computed tomography (CT) of the head was performed without intravenous contrast. The mA wa s adjusted according to patient size. Iterative reconstruction technique was employed. The dose-lengt h product was 605.33 mGy-cm. COMPARISON: Head CT 01/24/2022 FINDINGS: There is an old infarct involving the left basal ganglia and left internal capsule. There a re scattered areas of low attenuation in the cerebral white matter, which is within normal limits for the patient's age. There is no intracranial hemorrhage, acute infarction, or abnormal intracranial m ass lesion. The ventricles are normal in size. There is mild mucosal thickening in the paranasal sinu ses. The mastoid air cells are normal. The orbits are normal. IMPRESSION: 1. Old infarct involving the left basal ganglia and left internal capsule. Reviewed, dictated and finalized at location A. BASTING ARMHOLE BASTER
--- NOTE | ~2024-06-26 | CT_ITS ---
Non-contrast CT scan of the Abdomen and Pelvis Clinical indication: Abdominal pain Technique: 2.5 mm axial scans were obtained through the abdomen and pelvis without intravenous or or al contrast. Dose reduction technique was used on this scan by utilizing automated exposure control a nd iterative reconstruction technique. The dose-length product (DLP) was 205.50 mGy-cm. Findings: Images through the lung bases reveal patchy groundglass airspace disease in the visualized left lung, compatible with pneumonia. Visualized right lung base clear. Moderate hiatal hernia noted . There is no evidence of renal or ureteral calculi. The kidneys and the ureters are nondilated. The liver, spleen, pancreas, and adrenals appear normal. Cholecystectomy clips are present. There are atherosclerotic calcifications of the aorta. . There is no evidence of bowel obstruction. Images through the pelvis were performed. There is no evidence of ascites or lymphadenopathy. Urinary bladder unremarkable. No pelvic mass seen. There is 15 mm anterolisthesis of L4 over L5 with severe degenerative distended L4-L5. There is poste rior interbody fusion from L5 to S1. Impression: Patchy pneumonia throughout the visualized left lung. Moderate hiatal hernia. Reviewed, dictated and finalized at [facility]. 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 Moderate hiatal hernia.
--- NOTE | ~2024-06-26 | XR_ITS ---
Portable chest x-ray Comparison: 01/24/2022 Clinical History: Cough Findings: There is mild patchy groundglass opacity at the left lung. Right lung clear. Cardiomedias tinal silhouette is stable. Osseous structures intact. Moderate hiatal hernia. Impression: Patchy left lung pneumonia. Moderate hiatal hernia. Reviewed, dictated and finalized at [facility]. RESOURCE SPECIALIST Impression: Patchy left lung pneumonia. Moderate hiatal hernia.
[2024-06-26 02:31] LABS: Basophils Percent Auto 0.4 % (0.2-1.2); Eosinophils Absolute Auto 0.1 K/mm3 (0-0.3); Eosinophils Percent Auto 0.6 % (0-4.4); Hematocrit 40.2 % (37.0-47.0); Hemoglobin 12.9 g/dL (12.0-15.0); Immature Granulocyte Absolute 0.02 K/mm3 (0.00-0.031); Immature Granulocyte Percent A 0.2 % (0-0.5); Lymphocytes Absolute Auto 1.12 K/mm3 (0.9-3.2); Mean Corpuscular HGB Conc 32.1 g/dl (32-36); Mean Corpuscular Hemoglobin 29.5 pg (26-34); Mean Platelet Volume 10.7 fl (7.4-10.4); Monocytes Absolute Auto 0.3 K/mm3 (0.1-0.6); Monocytes Percent Auto 2.5 % (2.6-8.5); Neutrophils Absolute Auto 8.7 K/mm3 (1.3-6.7); Neutrophils Percent Auto 85.3 % (45.5-73.1); Platelet Count Result 232 k/mm3 (150-375); Red Blood Count 4.37 M/mm3 (4.2-5.4); Red Cell Distribution Width 13.1 % (11.5-14.5); White Blood Count 10.2 K/mm3 (4.5-10.0)
[2024-06-26] MEDS: ONDANSETRON INJ 4 MG/2 ML VIAL IV PUSH (02:56)
[2024-06-26] MEDS: MORPHINE SULFATE (*CRX) 4 MG/ML INJ 2 MG IV PUSH (02:56)
[2024-06-26] MEDS: SODIUM CHLORIDE 0.9% IV 1,000 ML 999 ML IV CONT (02:56)
[2024-06-26 03:00] LABS: Alanine Aminotransferase 16 U/L (6-35); Albumin Level 4.4 g/dL (3.5-5.1); Alkaline Phosphatase 94 U/L (38-126); Anion Gap 6 mmol/L (4-12); Aspartate Amino Transferase 32 U/L (14-36); Bilirubin,Total 0.6 mg/dL (0.2-1.3); Blood Urea Nitrogen 21 mg/dL (7-17); Calcium 9.8 mg/dL (8.4-10.2); Carbon Dioxide 27 mmol/L (22-30); Chloride 106 mmol/L (98-107); Estimated CRCL calculation 36 ml/min; Estimated Glomerular Filt Rate > 60; Glucose 126 mg/dL (65-110); Lipase 129 U/L (23-300); Potassium 4.3 mmol/L (3.4-5.0); Sodium 139 mmol/L (137-145)
[2024-06-26] MEDS: ACETAMINOPHEN 500 MG TABLET 1000 MG PO (03:10)
--- NOTE | 2024-06-26 03:37 | ED.GENADULT ---
HPI - General Adult General Chief complaint: Abdominal Pain Stated complaint: ABD PAIN Time Seen by Provider: 06/26/24 02:40 History of Present Illness HPI narrative: Patient 74-year-old female who presents to the emergency department with chief complaint of abdominal pain. The patient reports that started having some discomfort earlier today and reports that she has had some nausea and dry heaving the patient reports that she has had a prior cholecystectomy reports the pain is more right upper quadrant the patient reports no urinary symptoms denies diarrhea denies trauma Related Data Allergies Allergy/AdvReac Type Severity Reaction Status Date / Time Penicillins Allergy Unknown Skin Verified 04/26/24 16:14 Reaction Sulfa (Sulfonamide Allergy Unknown Skin Verified 04/26/24 16:14 Antibiotics) Reaction Shrimp Allergy Intermediate RASH Uncoded 04/26/24 16:14 Contrast Media Allergy Unknown RASH Uncoded 04/26/24 16:14 Review of Systems Review of Systems: A 10 system review of systems was completed on the patient and is negative except for what is stated in the HPI. Nursing and ancillary documentation was reviewed. PMFSH Past Medical History Medical History Impaction of the bowels Left thalamic infarction Surgical History Surgical History H/O discectomy History of appendectomy Hx of cholecystectomy Family History Family History Father Hypertension Family history of cardiovascular disease Mother Hypertension Family history of elevated blood lipids Social History Social History Social History: former smoker Smoking status: Former smoker Alcohol intake: former Substance use type: painkillers Do You Feel Safe in your Home?: Yes Lack of Transportation: No Lack of Food: Never True Current Housing: I Have Housing Concerned About Future Housing: No Difficulty Paying Gas/Electric Bills: No Difficulty Paying for Meds: No Currently Unemployed: No Education: High School Diploma/GED Difficulty w/ Childcare or Family Care: No Gender identity (if verbalized by the patient): Female Exam Narrative: GENERAL: Well-appearing, well-nourished, and in no acute distress. HEAD: Normocephalic, atraumatic. EYES: PERRLA and EOMI. ENT: Nares clear, no rhinorrhea or epistaxis. Mucous membranes moist. NECK: Supple. CHEST: Clear to auscultation. No respiratory distress. HEART: Regular rate and rhythm. No murmur heard. Normal peripheral pulses. ABDOMEN: Soft, nontender, nondistended, normal active bowel sounds. EXTREMITIES: Normal range of motion. No edema. SKIN: Warm, dry, no rash. NEURO: No focal deficits. Alert and oriented x3. PSYCH: Normal mood and affect. Course Vital Signs Vital signs: Vital Signs Temperature 38.4 C H 06/26/24 02:13 Pulse Rate 128 H 06/26/24 02:13 Respiratory Rate 20 06/26/24 02:13 Pulse Oximetry 99 06/26/24 02:13 Oxygen Delivery Room Air 06/26/24 02:13 Temperature 38.1 C H 06/26/24 05:49 Pulse Rate 95 06/26/24 05:49 Respiratory Rate 21 H 06/26/24 05:49 Blood Pressure 103/58 L 06/26/24 05:49 Pulse Oximetry 97 06/26/24 05:49 Oxygen Delivery Nasal Cannula 06/26/24 04:31 Oxygen Flow Rate 2 06/26/24 04:31 Medical Decision Making MDM Narrative Medical decision making narrative: Differential diagnosis includes pneumonia, sepsis, intra-abdominal infection, gastroenteritis, colitis, diverticulitis Laboratory studies were obtained on the patient showed a white count 10.2 lactate was normal electrolytes are within normal limits CT scan of the abdomen pelvis showed no acute intra-abdominal pathology but did show a patchy nodular infiltrate in the left lung concerning for pneumonia Patient is feeling better after receiving IV fluids and antipyretics patient started on Rocephin and Zithromax Vital Signs Vital Signs: Vital Signs Temperature 38.4 C H 06/26/24 02:13 Pulse Rate 128 H 06/26/24 02:13 Respiratory Rate 20 06/26/24 02:13 Pulse Oximetry 99 06/26/24 02:13 Oxygen Delivery Room Air 06/26/24 02:13 Temperature 38.1 C H 06/26/24 05:49 Pulse Rate 95 06/26/24 05:49 Respiratory Rate 21 H 06/26/24 05:49 Blood Pressure 103/58 L 06/26/24 05:49 Pulse Oximetry 97 06/26/24 05:49 Oxygen Delivery Nasal Cannula 06/26/24 04:31 Oxygen Flow Rate 2 06/26/24 04:31 Lab Data 06/26/24 02:26 06/26/24 02:26 Labs: Lab Results 06/26/24 06/26/24 Range/Units 02:26 05:14 WBC 10.2 H (4.5-10.0) K/mm3 RBC 4.37 (4.2-5.4) M/mm3 Hgb 12.9 (12.0-15.0) g/dL Hct 40.2 (37.0-47.0) % MCV 92.0 (80-100) fl MCH 29.5 (26-34) pg MCHC 32.1 (32-36) g/dl RDW 13.1 (11.5-14.5) % Plt Count 232 (150-375) k/mm3 MPV 10.7 H (7.4-10.4) fl Immature Gran % (Auto) 0.2 (0-0.5) % Neut % (Auto) 85.3 H (45.5-73.1) % Lymph % (Auto) 11.0 L (18.3-44.2) % [place] % (Auto) 2.5 L (2.6-8.5) % Eos % (Auto) 0.6 (0-4.4) % Baso % (Auto) 0.4 (0.2-1.2) % Lymph # (Auto) 1.12 (0.9-3.2) K/mm3 [place] # (Auto) 0.3 (0.1-0.6) K/mm3 Eos # (Auto) 0.1 (0-0.3) K/mm3 Baso # (Auto) 0.0 (0.0-0.1) K/mm3 Abs Immat Gran (auto) 0.02 (0.00-0.031) K/mm3 Absolute Neuts (auto) 8.7 H (1.3-6.7) K/mm3 Absolute Nucleated RBC 0.000 (0.0-0.012) K/mm3 Nucleated RBC % 0.0 (0.0-0.2) % Sodium 139 (137-145) mmol/L Potassium 4.3 (3.4-5.0) mmol/L Chloride 106 (98-107) mmol/L Carbon Dioxide 27 (22-30) mmol/L Anion Gap 6 (4-12) mmol/L BUN 21 H D (7-17) mg/dL Creatinine 0.90 (0.7-1.0) mg/dL Estim Creat Clear Calc 36 ml/min Estimated GFR > 60 (59 - ) Glucose 126 H (65-110) mg/dL Lactic Acid 0.7 (0.7-2.0) mmol/L Calcium 9.8 (8.4-10.2) mg/dL Magnesium 2.0 (1.6-2.3) mg/dL Total Bilirubin 0.6 (0.2-1.3) mg/dL AST 32 (14-36) U/L ALT 16 (6-35) U/L Alkaline Phosphatase 94 (38-126) U/L Total Protein 7.0 (6.3-8.2) g/dL Albumin 4.4 (3.5-5.1) g/dL Lipase 129 (23-300) U/L Discharge Plan Discharge Clinical Impression: Pneumonia Patient Disposition: Still a Patient Condition: Stable Instructions: Antibiotic Form Prescriptions: No Action trazodone 50 mg tablet See Rx Instructions .ROUTE .COMPLEX Qty: 180 3RF Dose Instruction: TAKE 1 OR TWO (2) TABLETS BY MOUTH EVERY NIGHT AT BEDTIME FOR FOR FOR SLEEP Rx Instructions: TAKE 1 OR TWO (2) TABLETS BY MOUTH EVERY NIGHT AT BEDTIME FOR FOR FOR SLEEP albuterol sulfate [ProAir HFA] 90 mcg/actuation HFA aerosol inhaler 1 puff INHALATION Q4H PRN (Reason: bronchospasm) Qty: 18 2RF naproxen 375 mg tablet See Rx Instructions .ROUTE .COMPLEX Qty: 60 2RF Dose Instruction: TAKE 1 TABLET (375 MG) ORALLY TWICE A DAY Rx Instructions: TAKE 1 TABLET (375 MG) ORALLY TWICE A DAY hydrocodone-acetaminophen 5-325 mg tablet 1 tablet PO Q6H PRN (Reason: pain) Qty: 60 0RF Rx Instructions: May hydrocodone-acetaminophen 5-325 mg tablet 1 tablet PO Q6H PRN (Reason: pain) Qty: 60 0RF Rx Instructions: JUNE hydrocodone-acetaminophen 5-325 mg tablet 1 tablet PO Q6H PRN (Reason: pain) Qty: 60 0RF Rx Instructions: July alprazolam 1 mg tablet 1 mg PO TID PRN (Reason: anxiety) Qty: 90 5RF Follow-up/Referrals: Dee Dee Brewer MD [Primary Care Provider] - Time of Disposition: 05:54
[2024-06-26 05:30] LABS: Lactic Acid Reflex 0.7 mmol/L (0.7-2.0)
[2024-06-26 06:12] LABS: Add Urine Microscopic? YES; Appearance Urine Clear (Clear); Bacteria Urine None Seen /hpf; Bilirubin Urine Negative (Negative); Blood Urine Negative (Negative); Color Urine Yellow (Yellow); Glucose Urine UA Negative (Negative); Ketones Urine Negative (Negative); Leukocyte Esterase Ur Negative LEU/UL (Negative); Need Manual Microscopic Reviewed; Nitrate Urine Negative (Negative); Non Pathogenic Casts 0-2; Protein Urine Trace mg/dL (Negative); RBC Urine 0-2 /hpf (0-2); Specific Grav Ur 1.022 (1.001-1.035); Squamous Epithelial Cell Urine None Seen /hpf (Few); Urobilinogen Urine 0.2 mg/dL (<2.0); WBC Urine 0-5 /hpf (0-3); pH Urine 5.5 (5.0-9.0)
[2024-06-26] MEDS: AZITHROMYCIN 500 MG/NS 250 ML 500 MG/250 ML BAG 250 MG IVPB (06:48)
--- NOTE | 2024-06-26 08:34 | P.HP_ITS ---
H&P: HPI History of Present Illness Date/Time: 06/26/24 08:34 Chief Complaint: Abdominal pain Narrative: 74yo female with hx of CVA here for cough, SOB and abdominal pain. Patient has been feeling well prior to admission. No fevers, cough, sore throat, CP, palpitations, dysuria, hematuria, n/v, diarrhea or constipation. She has been eating okay and no weight loss. No dysphagia but occasional odynophagia with food sticking sensation when eating hard foods (meats) over the past year. She has to be 'careful' when eating certain foods. She does have asthma and uses her Albuterol nebulizer about 1x/year but her Albuterol inhaler about 2-3x/month. No hx of IDANIA, ILD, COPD or emphysema. She notices more SOB when ill and when her neighbor (ross) clears his lindquist. She quit tobacco in her 30's after about 5p ack-year hx. No sick contacts. She is not up to date on her vaccines. Last night, she awoke with RUQ abdominal pain with associated SOB and cough. She also with nausea with dry heaves. She did not take any medications at home but called her daughter who contacted EMS and patient was brought to the ED for evaluation. In the ED, she was febrile to 101.1, tachycardic at 128 but not hypoxic. BP norm al but dropped to 91/50. CBC normal except slightly elevated WBC 10.2K. CMP essentially normal. Lipase normal. Lactic acid 0.7. UA negative. CT Abd/Pelvis without contrast showing pathcy PNA in the left lung base but no other acute findings. CXR showing patchy left lung PNA. She was treated with morphine, Zofran and Tylenol. BCx collected. She received 1L NS and was started on Rocephin and Azithromycin. She was admitted for further care. Review of Systems Review of Systems: All systems reviewed & are unremarkable except as noted in HPI and below PMFSH Past Medical History Medical History (Updated 06/26/24 @ 09:47 by Imtiaz Stovall MD) Anxiety Asthma Chronic back pain CTS (carpal tunnel syndrome) Impaction of the bowels Left thalamic infarction Surgical History Surgical History (Updated 06/26/24 @ 09:42 by Imtiaz Stovall MD) H/O discectomy History of appendectomy History of carpal tunnel surgery resulting in left hand temperature dysregulation and weakness. Hx of cholecystectomy Family History Family History Father Hypertension Family history of cardiovascular disease Mother Hypertension Family history of elevated blood lipids Social History Social History (Updated 06/26/24 @ 09:44 by Imtiaz Stovall MD) Social History: Lives alone. No alcohol or drug use. Smoked <1ppd for about 5 years and quit in her 30's. Code status - Full Surrogate decision maker - daughter Smoking status: Former smoker Alcohol intake: former Substance use: former Substance use type: painkillers Do You Feel Safe in your Home?: Yes Lack of Transportation: No Lack of Food: Never True Current Housing: I Have Housing Concerned About Future Housing: No Difficulty Paying Gas/Electric Bills: No Difficulty Paying for Meds: No Currently Unemployed: No Education: High School Diploma/GED Difficulty w/ Childcare or Family Care: No Gender identity (if verbalized by the patient): Female Spiritual care concerns: No Meds Home Medications and Allergies Home Medications Medication Instructions Recorded Confirmed Type albuterol sulfate 90 mcg/actuation 1 puff inhalation Q4H PRN 09/06/23 06/26/24 Rx aerosol inhaler (ProAir HFA) bronchospasm #18 grams alprazolam 1 mg tablet 1 mg PO TID anxiety 06/26/24 06/26/24 History hydrocodone 5 mg-acetaminophen 325 1 tablet PO BID pain 06/26/24 06/26/24 History mg tablet Allergies Allergy/AdvReac Type Severity Reaction Status Date / Time shrimp Allergy Intermediate Rash Verified 06/26/24 09:43 Iodinated Contrast Media Allergy Unknown Rash Verified 06/26/24 09:43 Penicillins Allergy Unknown Skin Verified 06/26/24 09:43 Reaction Sulfa (Sulfonamide Allergy Unknown Skin Verified 06/26/24 09:43 Antibiotics) Reaction Vital Signs Vital Signs - 24 hr 06/26/24 02:13 06/26/24 03:00 06/26/24 04:31 Temperature 101.1 F H Pulse Rate 128 H 115 H Respiratory Rate 20 16 Blood Pressure 102/60 Pulse Oximetry 99 99 95 Oxygen Delivery Room Air Nasal Cannula Oxygen Flow Rate 2 06/26/24 04:04 06/26/24 05:49 06/26/24 07:00 Temperature 100.6 F H Pulse Rate 102 H 95 90 Respiratory Rate 19 21 H 16 Blood Pressure 112/58 L 103/58 L 102/50 L Pulse Oximetry 96 97 99 Oxygen Delivery Oxygen Flow Rate 06/26/24 07:42 Temperature Pulse Rate 88 Respiratory Rate 18 Blood Pressure 91/50 L Pulse Oximetry 99 Oxygen Delivery Oxygen Flow Rate Exam Narrative: Tm 101.1 100.6 91/50 88 18 99% 2L Gen - well appearing female in no acute respiratory distress who is nontoxic- appearing lying semi recumbent in bed HEENT - normocephalic. Atraumatic. Pupils equal round and reactive. Extraocular motions intact. Sclera clear and anicteric. Nares patent. Oropharynx was poorly visualized. No oral lesions. Moist mucous membranes. Tongue was midline. Palate evans symmetrically. No facial asymmetry. Neck - neck was supple. No dominant adenopathy, thyromegaly or masses. 2+ carotid upstrokes without bruits. Chest - left base inspiratory crackles o/w clear. Nml RR. No conversational dyspnea. Breast exam was deferred. CV - heart was regular rate and rhythm. S1-S2. No murmurs gallops or rubs. Abd - abdomen was soft. Nondistended. Positive bowel sounds. No organomegaly or masses. Mild right upper quadrant pain but no guarding or rebound Ext - no clubbing, cyanosis or edema. 2+ DP pulses bilaterally. Left wrist surgical deformity with loss of thenar muscle mass Neuro - patient is alert and oriented x4. 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 Cranial nerves 2-12 are intact. Speech is clear. Psych - normal mood and affect. Patient is pleasant and cooperative. Skin - warm and dry. No rashes noted. H&P: Results Labs Labs: Short CBC 06/26/24 Range/Units 02:26 WBC 10.2 H (4.5-10.0) K/mm3 Hgb 12.9 (12.0-15.0) g/dL Hct 40.2 (37.0-47.0) % Plt Count 232 (150-375) k/mm3 BMP 06/26/24 02:26 Sodium 139 Potassium 4.3 Chloride 106 Carbon Dioxide 27 BUN 21 H D Creatinine 0.90 Glucose 126 H Calcium 9.8 Liver Function 06/26/24 Range/Units 02:26 Total Bilirubin 0.6 (0.2-1.3) mg/dL AST 32 (14-36) U/L ALT 16 (6-35) U/L Alkaline Phosphatase 94 (38-126) U/L Albumin 4.4 (3.5-5.1) g/dL Urine 06/26/24 Range/Units 05:50 Urine Color Yellow (Yellow) Urine Appearance Clear (Clear) Urine pH 5.5 (5.0-9.0) Ur Specific [place] 1.022 (1.001-1.035) Urine Protein Trace (Negative) mg/dL Urine Glucose (UA) Negative (Negative) mg/dL Assessment and Plan Assessment and plan (1) Sepsis: Code(s): A41.9 - Sepsis, unspecified organism Status: Acute Assessment and Plan: Patient presents with abdominal pain, cough and shortness of breath. She was found to have tachycardia and fever. White count is mildly elevated. Lactic acid level is normal. CT of the abdomen and pelvis without contrast did not show any acute findings in the abdomen or pelvis. It did show left lung base airspace disease. Chest x-ray reviewed personally showing left lung airspace disease consistent with pneumonia. Right upper quadrant abdominal pain etiology is unclear. She received 1 L of normal saline in the ED. She was started on Rocephin azithromycin which will continue. Check MRSA nasal swab. Check COVID. Check procalcitonin level. Repeat lactic acid. Wean oxygen as tolerated. Add Duonebs (2) Pneumonia: Code(s): J18.9 - Pneumonia, unspecified organism Status: Acute Assessment and Plan: Blood cultures collected. Imaging as mentioned above. Check COVID nasal swab. Check MRSA nasal swab. Check Ag. Follow-up on blood culture results. Continue IV antibiotics. Wean oxygen as tolerated (3) Abdominal pain: Code(s): R10.9 - Unspecified abdominal pain Status: Acute Assessment and Plan: Patient with mild right upper quadrant pain. No obvious findings on CT (without contrast) to suggest etiology. Lipase and LFTs normal. No bowel obstruction but consider constipation. She is s/p cholecystectomy. Consider also related to hiatal hernia or peptic ulcer disease. The PNA is left sided. Check RUQ US. Add colace. Add PPI. (4) Asthma: Code(s): J45.909 - Unspecified asthma, uncomplicated Status: Acute Assessment and Plan: Patient with mild intermittent asthma. Only on Albuterol prn No wheezing so doubt flare. Follow (5) Anxiety: Code(s): F41.9 - Anxiety disorder, unspecified Status: Acute Assessment and Plan: Mood stable. She uses alprazolam prn. Will resume and reminded patient that she will need to ask for this medication if she feels she needs it She voiced undertanding (6) Chronic back pain: Code(s): M54.9 - Dorsalgia, unspecified; G89.29 - Other chronic pain Status: Acute Assessment and Plan: Patient with chronic low back pain. Resume scheduled hydrocodone-acetaminophen Plan DVT prophylaxis - Lovenox Code status - full
--- NOTE | 2024-06-26 08:42 | PC.NURSE ---
This patient, Oliva Zapata, was admitted to 3 Med Surg Room 306-01 on 06/26/24 @ 0815. Patient/family oriented to hospital policies and general routines including ID bracelet, bed and alarms, visiting hours, pain management, procedures, bathroom and other care routines, personal items, smoking policy, room service/diet, and visiting hours. Information on how to activate the Rapid Response Team has been discussed. Patient/Family are encouraged to report perceived risks to care and to ask questions if they do not understand what they are told or what they should do.
[2024-06-26] MEDS: SODIUM CHLORIDE 0.9% IV 1,000 ML 100 ML IV CONT ×2 (09:31→20:00)
[2024-06-26 11:07] LABS: Lactic Acid Reflex 2.8 mmol/L (0.7-2.0)
[2024-06-26 11:26] LABS: Procalcitonin 20.3 ng/mL
[2024-06-26 11:33] LABS: Influenza A QL RT-PCR Negative (Negative); Influenza B QL RT-PCR Negative (Negative); RSV RNA, RT-PCR Negative (Negative); SARS-CoV-2 RNA PCR Negative (Negative)
[2024-06-26 12:06] LABS: MRSA (PCR) DETECTED (NOT DETECTE)
[2024-06-26] MEDS: PANTOPRAZOLE 40 MG TABLET PO (12:36)
[2024-06-26] MEDS: DOCUSATE SODIUM 100 MG CAPSULE PO (12:36)
[2024-06-26] MEDS: IPRATROPIUM 0.5 MG/ALBUTEROL SULFATE 2.5 MG AMPUL.NEB 3 ML INHALATION ×2 (13:20→21:41)
[2024-06-26 13:53] LABS: Reflex Lactic Acid Yes or No Add Lactic
[2024-06-26] MEDS: VANCOMYCIN 1,250 MG/NS 250 ML 1,250 MG/250 ML BAG 166.67 MG IVPB (14:38)
[2024-06-26 14:51] LABS: Lactic Acid 1.5 mmol/L (0.7-2.0)
[2024-06-26] MEDS: HYDROcodone/acetaminophen (*CRX) 5-325 MG TABLET 1 TAB PO (17:36)
[2024-06-27] VITALS (16 sets, daily range): BP systolic 104–144; BP diastolic 55–70; PULSE 79–97; RESP 18–20; TEMP 36.9–38.2; O2SAT 94–98
[2024-06-27] MEDS: IPRATROPIUM 0.5 MG/ALBUTEROL SULFATE 2.5 MG AMPUL.NEB 3 ML INHALATION ×4 (02:08→20:09)
[2024-06-27] MEDS: AZITHROMYCIN 500 MG/NS 250 ML 500 MG/250 ML BAG 250 MG IVPB (04:30)
[2024-06-27] MEDS: ACETAMINOPHEN 325 MG TABLET 650 MG PO (05:30)
[2024-06-27 07:55] LABS: Basophils Percent Auto 0.3 % (0.2-1.2); Eosinophils Absolute Auto 0.1 K/mm3 (0-0.3); Eosinophils Percent Auto 0.6 % (0-4.4); Hematocrit 31.5 % (37.0-47.0); Hemoglobin 9.4 g/dL (12.0-15.0); Immature Granulocyte Absolute 0.11 K/mm3 (0.00-0.031); Immature Granulocyte Percent A 0.8 % (0-0.5); Lymphocytes Absolute Auto 0.76 K/mm3 (0.9-3.2); Lymphocytes Percent Auto 5.8 % (18.3-44.2); Mean Corpuscular HGB Conc 29.8 g/dl (32-36); Mean Corpuscular Hemoglobin 28.4 pg (26-34); Mean Corpuscular Volume 95.2 fl (80-100); Mean Platelet Volume 10.5 fl (7.4-10.4); Monocytes Absolute Auto 0.8 K/mm3 (0.1-0.6); Monocytes Percent Auto 5.8 % (2.6-8.5); Neutrophils Absolute Auto 11.3 K/mm3 (1.3-6.7); Neutrophils Percent Auto 86.7 % (45.5-73.1); Platelet Count Result 153 k/mm3 (150-375); Red Blood Count 3.31 M/mm3 (4.2-5.4); Red Cell Distribution Width 13.4 % (11.5-14.5)
[2024-06-27 08:32] LABS: Alanine Aminotransferase 144 U/L (6-35); Albumin Level 3.2 g/dL (3.5-5.1); Alkaline Phosphatase 74 U/L (38-126); Anion Gap 4 mmol/L (4-12); Aspartate Amino Transferase 124 U/L (14-36); Bilirubin,Total 0.5 mg/dL (0.2-1.3); Blood Urea Nitrogen 10 mg/dL (7-17); Calcium 8.7 mg/dL (8.4-10.2); Carbon Dioxide 26 mmol/L (22-30); Chloride 109 mmol/L (98-107); Estimated CRCL calculation 39 ml/min; Estimated Glomerular Filt Rate > 60; Glucose 87 mg/dL (65-110); Lipase 63 U/L (23-300); Potassium 4.1 mmol/L (3.4-5.0); Sodium 139 mmol/L (137-145)
[2024-06-27] MEDS: DOCUSATE SODIUM 100 MG CAPSULE PO ×2 (08:55→20:54)
[2024-06-27] MEDS: HYDROcodone/acetaminophen (*CRX) 5-325 MG TABLET 1 TAB PO ×2 (08:55→17:42)
[2024-06-27] MEDS: PANTOPRAZOLE 40 MG TABLET PO (08:56)
[2024-06-27] MEDS: ENOXAPARIN 40 MG/0.4 ML SYRINGE SUB-Q (08:56)
[2024-06-27 09:38] LABS: Hypochromasia 1+; Platelet Estimate Adequate (Adequate); Schistocytes None Seen
[2024-06-27 12:09] LABS: Hematocrit 32.7 % (37.0-47.0); Hemoglobin 10.3 g/dL (12.0-15.0)
[2024-06-27 13:05] LABS: Iron 22 ug/dL (37-170)
[2024-06-27 13:22] LABS: Percent Iron Saturation 6 % (20-50)
[2024-06-27 13:46] LABS: Hepatitis B Surface Antigen Negative (Negative)
[2024-06-27 13:52] LABS: HAV RESULT Negative (Negative); Hepatitis B Core IgM Result Negative (Negative)
[2024-06-27 14:03] LABS: Hepatitis C Virus Antibody Negative (Negative)
--- NOTE | 2024-06-27 16:27 | PM.IMPN ---
Progress Note: A&P Assessment and Plan (1) Sepsis: Code(s): A41.9 - Sepsis, unspecified organism Status: Acute Assessment and Plan: Patient presents with abdominal pain, cough and shortness of breath. She was found to have tachycardia and fever. White count is mildly elevated. Lactic acid level is normal. CT of the abdomen and pelvis without contrast did not show any acute findings in the abdomen or pelvis. It did show left lung base airspace disease. Chest x-ray reviewed personally showing left lung airspace disease consistent with pneumonia. Right upper quadrant abdominal pain etiology is unclear. She received 1 L of normal saline in the ED. She was started on Rocephin azithromycin which was continued MRSA nasal swab was positive so Vanco added. COVID, RSV and influenza PCR negative. Repeat lactic acid was elevated at 2.8 but trended down on repeat. PCT was 20. BCx NGTD. Check sputum cx. WBC climbing to 13K and having low grade fevers. Consider ESBL or pseudomonas coverage if she does not improve by tomorrow. Weaned to room air. Continue bronchodialtors. Continue current IV abx. (2) Pneumonia: Code(s): J18.9 - Pneumonia, unspecified organism Status: Acute Assessment and Plan: Blood cultures collected. Imaging as mentioned above. MRSA nasal swab was positive so Vanco added. COVID, RSV and influenza PCR negative. BCx NGTD As above. Continue current IV antibiotics but consider broader coverage if does not improve. Weaned to room air. (3) Abdominal pain: Code(s): R10.9 - Unspecified abdominal pain Status: Acute Assessment and Plan: Patient with mild right upper quadrant pain. No obvious findings on CT (without contrast) to suggest etiology. Lipase and LFTs normal on admission RUQ US normal. AST and ALT elevated today. Consider hepatitis related to above. Hepatitis panel negative. Abd pain resolving. Follow LFTs (4) Asthma: Code(s): J45.909 - Unspecified asthma, uncomplicated Status: Acute Assessment and Plan: Patient with mild intermittent asthma. Only on Albuterol prn No wheezing so doubt flare. Follow (5) Anxiety: Code(s): F41.9 - Anxiety disorder, unspecified Status: Acute Assessment and Plan: Mood stable. She uses alprazolam prn. Will resume and reminded patient that she will need to ask for this medication if she feels she needs it She voiced undertanding (6) Chronic back pain: Code(s): M54.9 - Dorsalgia, unspecified; G89.29 - Other chronic pain Status: Acute Assessment and Plan: Patient with chronic low back pain. Resumed scheduled hydrocodone-acetaminophen (7) Anemia: Code(s): D64.9 - Anemia, unspecified Status: Acute Assessment and Plan: Hgb 12.9 on admission but dropped to 9.4 this morning. Irons studies c/w iron deficiency anemia. Repeat Hgb 10.3 Stool guaiac ordered. Oral iron ordered. Monitro HH Plan DVT prophylaxis - Lovenox Code status - full Subjective Date/time seen: 06/27/24 16:27 Interval history: 74yo female with hx of CVA here for cough, SOB and abdominal pain. Shortness of breath is better. Cough is nonproductive. Right upper quadrant pain is much better. No nausea or vomiting. No melena or hematochezia. Exam Narrative: Tm 100.7 100.3 134/70 83 18 96% ra Gen - NARD Chest -few bibasilar rhonchi otherwise clear. CV - RRR S1/S2 Abd - Soft, NT/ND, Positive BS Ext - No pedal edema Psych - Nml mood and affect Skin - Warm and dry Objective Data Vital Signs Vital Signs: Vital Signs - 24 hr 06/26/24 21:41 06/26/24 21:41 06/26/24 21:48 Temperature Pulse Rate 78 77 Respiratory Rate 19 18 Blood Pressure Pulse Oximetry 100 Oxygen Delivery Nasal Cannula Oxygen Flow Rate 2 06/26/24 21:57 06/26/24 20:00 06/27/24 02:08 Temperature 98.5 F Pulse Rate 75 84 Respiratory Rate 20 18 Blood Pressure 100/57 L Pulse Oximetry 98 98 Oxygen Delivery Nasal Cannula Oxygen Flow Rate 2 06/27/24 02:10 06/27/24 02:17 06/27/24 06:00 Temperature 100.7 F H Pulse Rate 79 93 Respiratory Rate 18 20 Blood Pressure 134/70 Pulse Oximetry 96 98 Oxygen Delivery Nasal Cannula Oxygen Flow Rate 1 06/27/24 06:54 06/27/24 08:12 06/27/24 08:12 Temperature 100.3 F H Pulse Rate 82 Respiratory Rate 18 Blood Pressure Pulse Oximetry 97 Oxygen Delivery Nasal Cannula Oxygen Flow Rate 1 06/27/24 08:19 06/27/24 08:00 06/27/24 14:04 Temperature Pulse Rate 80 Respiratory Rate 18 Blood Pressure Pulse Oximetry 96 Oxygen Delivery Room Air Room Air Oxygen Flow Rate 06/27/24 14:03 06/27/24 14:10 Temperature Pulse Rate 84 83 Respiratory Rate 18 18 Blood Pressure Pulse Oximetry Oxygen Delivery Oxygen Flow Rate Intake/Output Intake/Output: Intake & Output 06/24/24 06/25/24 06/26/24 06/27/24 23:59 23:59 23:59 23:59 Intake Total 3700 640 Balance 3700 640 Meds/Results Medications: Active Medications Generic Name Dose Route Start Last Admin Trade Name Freq PRN Reason Stop Dose Admin Acetaminophen 650 mg 06/26/24 05:52 06/27/24 05:30 Acetaminophen 325 Mg Tablet PO 650 mg Q4H PRN Administration Mild Pain (1-3) or Fever Hydrocodone Bitart/Acetaminophen 1 tab 06/26/24 17:00 06/27/24 08:55 Hydrocodone/Acetaminophen (*Crx) 5-325 Mg Tablet PO 1 tab BID JOSEF Administration Albuterol 1 puff 06/26/24 10:18 Albuterol Sulfate (*Sp) Aerosol 1 Puff INHALATION Q4H PRN bronchospasm Albuterol/Ipratropium 3 ml 06/26/24 08:00 06/27/24 14:03 Ipratropium 0.5 Mg/Albuterol Sulfate 2.5 Mg Ampul.Neb 3 Ml INHALATION 3 ml Q6HRT JOSEF Administration Alprazolam 1 mg 06/26/24 10:18 Alprazolam (*Crx) 0.5 Mg Tablet PO TID PRN Anxiety Docusate Sodium 100 mg 06/26/24 10:15 06/27/24 08:55 Docusate Sodium 100 Mg Capsule PO 100 mg Q12HR JOSEF Administration Enoxaparin Sodium 40 mg 06/27/24 09:00 06/27/24 08:56 Enoxaparin 40 Mg/0.4 Ml Syringe SUB-Q 40 mg DAILY JOSEF Administration Ceftriaxone Sodium 1 gm in 50 mls @ 100 mls/hr 06/27/24 06:00 06/27/24 05:30 Rocephin 1 Gm/Ns 50 Ml IVPB Infused Q24H JOSEF Infusion Azithromycin 500 mg in 250 mls @ 250 mls/hr 06/27/24 05:00 06/27/24 05:30 Zithromax IVPB Infused Q24H JOSEF Infusion Vancomycin HCl 1,000 mg in 250 mls @ 250 mls/hr 06/28/24 03:00 Vancomycin 1,000 Mg/Ns 250 Ml IVPB Q36H JOSEF Pantoprazole Sodium 40 mg 06/27/24 09:00 06/27/24 08:56 Pantoprazole 40 Mg Tablet PO 40 mg QAM JOSEF Administration Radiology Results: ITS Impressions Abdomen/Pelvis CT 06/26/24 07:17 Impression: Patchy pneumonia throughout the visualized left lung. Moderate hiatal hernia. Chest X-Ray 06/26/24 07:40 Impression: Patchy left lung pneumonia. Moderate hiatal hernia. Upper Quadrant Ultrasound 06/26/24 16:36 IMPRESSION: 1. Normal right upper quadrant ultrasound status post cholecystectomy. Labs Labs: Laboratory Results - last 24 hr 06/27/24 06/27/24 07:45 11:59 WBC 13.0 H RBC 3.31 L Hgb 9.4 L D 10.3 L Hct 31.5 L 32.7 L MCV 95.2 MCH 28.4 MCHC 29.8 L RDW 13.4 Plt Count 153 MPV 10.5 H Immature Gran % (Auto) 0.8 H Neut % (Auto) 86.7 H Lymph % (Auto) 5.8 L [place] % (Auto) 5.8 Eos % (Auto) 0.6 Baso % (Auto) 0.3 Lymph # (Auto) 0.76 L [place] # (Auto) 0.8 H Eos # (Auto) 0.1 Baso # (Auto) 0.0 Abs Immat Gran (auto) 0.11 H Absolute Neuts (auto) 11.3 H Absolute Nucleated RBC 0.000 Nucleated RBC % 0.0 Platelet Estimate Adequate Hypochromasia 1+ Schistocytes None seen Sodium 139 Potassium 4.1 Chloride 109 H Carbon Dioxide 26 Anion Gap 4 BUN 10 D Creatinine 0.80 Estim Creat Clear Calc 39 Estimated GFR > 60 Glucose 87 Calcium 8.7 Iron 22 L TIBC 359 % Saturation 6 L Ferritin 40.50 Total Bilirubin 0.5 AST 124 H ALT 144 H Alkaline Phosphatase 74 Total Protein 6.0 L Albumin 3.2 L Lipase 63 Hepatitis A IgM Ab Negative Hep Bs Antigen Negative Hep B Core IgM Ab Negative Hepatitis C Ab Screen Negative
[2024-06-27 20:41] LABS: Folic Acid 7.7 ng/mL (2.76->20)
[2024-06-27] MEDS: ALPRAZolam (*CRX) 0.5 MG TABLET 1 MG PO (22:25)
[2024-06-28] VITALS (7 sets, daily range): BP systolic 141–144; BP diastolic 60–71; PULSE 84–94; RESP 18–20; TEMP 36.2–36.6; O2SAT 94–100
[2024-06-28] MEDS: VANCOMYCIN 1,000 MG/NS 250 ML 1,000 MG/250 ML BAG 250 MG IVPB (02:04)
[2024-06-28] MEDS: AZITHROMYCIN 500 MG/NS 250 ML 500 MG/250 ML BAG 250 MG IVPB (04:37)
[2024-06-28 07:00] LABS: Estimated CRCL calculation 44 ml/min; Estimated Glomerular Filt Rate > 60
[2024-06-28] MEDS: IPRATROPIUM 0.5 MG/ALBUTEROL SULFATE 2.5 MG AMPUL.NEB 3 ML INHALATION ×2 (07:53→14:08)
[2024-06-28] MEDS: DOCUSATE SODIUM 100 MG CAPSULE PO (08:00)
[2024-06-28] MEDS: CYANOCOBALAMIN 1,000 MCG TABLET 1000 MCG PO (08:01)
[2024-06-28] MEDS: PANTOPRAZOLE 40 MG TABLET PO (08:01)
[2024-06-28] MEDS: FERROUS SULFATE 325 MG TABLET DR PO (08:01)
[2024-06-28] MEDS: HYDROcodone/acetaminophen (*CRX) 5-325 MG TABLET 1 TAB PO (08:01)
[2024-06-28] MEDS: CYANOCOBALAMIN INJ 1,000 MCG/ML VIAL 1000 MCG IM (08:04)
[2024-06-28 08:08] LABS: Basophils Percent Auto 0.4 % (0.2-1.2); Eosinophils Absolute Auto 0.2 K/mm3 (0-0.3); Eosinophils Percent Auto 1.8 % (0-4.4); Hematocrit 30.1 % (37.0-47.0); Hemoglobin 9.5 g/dL (12.0-15.0); Immature Granulocyte Absolute 0.05 K/mm3 (0.00-0.031); Immature Granulocyte Percent A 0.5 % (0-0.5); Lymphocytes Absolute Auto 0.77 K/mm3 (0.9-3.2); Lymphocytes Percent Auto 7.2 % (18.3-44.2); Mean Corpuscular HGB Conc 31.6 g/dl (32-36); Mean Corpuscular Hemoglobin 29.2 pg (26-34); Mean Corpuscular Volume 92.6 fl (80-100); Mean Platelet Volume 11.6 fl (7.4-10.4); Monocytes Absolute Auto 0.9 K/mm3 (0.1-0.6); Monocytes Percent Auto 8.7 % (2.6-8.5); Neutrophils Absolute Auto 8.7 K/mm3 (1.3-6.7); Neutrophils Percent Auto 81.4 % (45.5-73.1); Platelet Count Result 169 k/mm3 (150-375); Red Blood Count 3.25 M/mm3 (4.2-5.4); Red Cell Distribution Width 13.3 % (11.5-14.5); White Blood Count 10.7 K/mm3 (4.5-10.0)
[2024-06-28] MEDS: ENOXAPARIN 40 MG/0.4 ML SYRINGE SUB-Q (08:15)
[2024-06-28 08:29] LABS: Alanine Aminotransferase 99 U/L (6-35); Albumin Level 3.3 g/dL (3.5-5.1); Alkaline Phosphatase 73 U/L (38-126); Anion Gap 2 mmol/L (4-12); Aspartate Amino Transferase 63 U/L (14-36); Bilirubin,Total 0.7 mg/dL (0.2-1.3); Blood Urea Nitrogen 8 mg/dL (7-17); Calcium 8.8 mg/dL (8.4-10.2); Carbon Dioxide 28 mmol/L (22-30); Chloride 110 mmol/L (98-107); Estimated CRCL calculation 44 ml/min; Estimated Glomerular Filt Rate > 60; Glucose 87 mg/dL (65-110); Potassium 3.7 mmol/L (3.4-5.0); Sodium 140 mmol/L (137-145)
--- NOTE | 2024-06-28 16:10 | P.DS_ITS ---
DS: Admitting Diagnosis Discharge Date 06/28/24 Admitting Diagnosis Cough, SOB and abdominal pain DS: Discharge Diagnosis Discharge Diagnosis (1) Sepsis: Code(s): A41.9 - Sepsis, unspecified organism Status: Acute (2) Pneumonia: Code(s): J18.9 - Pneumonia, unspecified organism Status: Acute (3) Abdominal pain: Code(s): R10.9 - Unspecified abdominal pain Status: Acute (4) Asthma: Code(s): J45.909 - Unspecified asthma, uncomplicated Status: Acute (5) Anxiety: Code(s): F41.9 - Anxiety disorder, unspecified Status: Acute (6) Chronic back pain: Code(s): M54.9 - Dorsalgia, unspecified; G89.29 - Other chronic pain Status: Acute (7) Anemia: Code(s): D64.9 - Anemia, unspecified Status: Acute DS: Summary Hospital Course Reason for hospitalization: 74yo female with hx of CVA here for cough, SOB and abdominal pain. Please see H&P for details. Hospital Course: Patient presents with abdominal pain, cough and shortness of breath. She was found to have tachycardia and fever. White count was mildly elevated. Lactic acid level is normal. CT of the abdomen and pelvis without contrast did not show any acute findings in the abdomen or pelvis. It did show left lung base airspace disease. Chest x-ray reviewed personally showing left lung airspace disease consistent with pneumonia. She received 1 L of normal saline in the ED. She was started on Rocephin and azithromycin which was continued. MRSA nasal swab was positive so Vanco added. COVID, RSV and influenza PCR negative. Repeat lactic acid was elevated at 2.8 but trended down on repeat. PCT was 20. BCx NGTD. Sputum cx ordered. WBC climbed to 13K and was having low grade fevers before symptoms improved. She was weaned to room air. Also treated with bronchodilators. Patient with mild right upper quadrant pain as well. No obvious findings on CT (without contrast) to suggest etiology. Lipase and LFTs normal on admission. RUQ US normal. AST and ALT became elevated. Hepatitis panel negative. Abd pain resolved and LFTs trended down. Possibly mild hepatitis related to current infection. She was complaining of headache and having bouts of confusion prior to admission. CT head showing old CVA but no acute findings. Add baby ASA at discharge with Pepcid. No Lipitor given the elevated LFTs. Hgb 12.9 on admission but dropped to 9-10 range. Irons studies c/w iron deficiency anemia. Stool guaiac ordered but not collected. No prior colonoscopy. Consider malnutrition to explain her B12 and iron deficiencies. Oral iron added to her regiment. B12 level low end of normal at 255. b12 deficiency could be contributing to her confusion but also consider her chronic narcotics and benzodiazepines causing confusion. She had clinical improvement. She overall did well and was able to be discharged on 06/28/24. Status at Discharge Cognitive/behavioral status at discharge: stable Time Spent with Patient Time attestation: Total time spent providing and/or coordinating discharge services: 35 minutes Time spent: Greater than 30 minutes Exam Narrative: AF 97.2 144/71 84 18 100% ra Gen - NARD Chest -few bibasilar rhonchi otherwise clear. CV - RRR S1/S2 Abd - Soft, NT/ND, Positive BS Ext - No pedal edema Neuro - AOx4. no focal weakness. Psych - Nml mood and affect Skin - Warm and dry DS: Data Data Completed and Pending Labs on day of discharge: Labs from last 24 hours 06/28/24 06/28/24 06/27/24 06:19 06:16 11:59 WBC 10.7 H RBC 3.25 L Hgb 9.5 L Hct 30.1 L MCV 92.6 MCH 29.2 MCHC 31.6 L RDW 13.3 Plt Count 169 MPV 11.6 H Immature Gran % (Auto) 0.5 Neut % (Auto) 81.4 H Lymph % (Auto) 7.2 L [place] % (Auto) 8.7 H Eos % (Auto) 1.8 Baso % (Auto) 0.4 Lymph # (Auto) 0.77 L [place] # (Auto) 0.9 H Eos # (Auto) 0.2 Baso # (Auto) 0.0 Abs Immat Gran (auto) 0.05 H Absolute Neuts (auto) 8.7 H Absolute Nucleated RBC 0.000 Nucleated RBC % 0.0 Sodium 140 Potassium 3.7 Chloride 110 H Carbon Dioxide 28 Anion Gap 2 L BUN 8 Creatinine 0.70 0.70 Estim Creat Clear Calc 44 44 Estimated GFR > 60 > 60 Glucose 87 Calcium 8.8 Total Bilirubin 0.7 AST 63 H ALT 99 H Alkaline Phosphatase 73 Total Protein 6.0 L Albumin 3.3 L Vitamin B12 255.0 Methylmalonic Acid Pending Folate 7.7 Preliminary micro results at discharge 06/26/24 06:12 Blood Culture - Preliminary Blood 06/26/24 06:12 Blood Culture - Preliminary Blood Discharge Plan Discharge Attending physician on discharge: Imtiaz Stovall Discharging Clinician: Imtiaz Stovall Anticipated Discharge Date/Time: 06/28/24 16:20 Patient Disposition: Home, Self-Care Activity: as tolerated Diet: heart healthy Discharge Instructions: You are taking both a narcotic and a benzodiazepine. Please have your primary provider review your medication list to see if this is still appropriate. Please complete your antibiotic course even if you are starting to feel well. Take precautions to avoid falls. Rise slowly from a lying or sitting position. Pause before standing or walking. Contact your doctor or call 911 and come to the Emergency Room if you have fevers, lightheadedness with standing or other worrisome symptoms. Avoid NSAIDs (ibuprofen, naproxen, Aleve). Tylenol is safe to take. Follow-up with your primary care provider in 1-2 weeks. Please call for appointment. -- Talk with your doctor about a GI evaluation for your iron deficiency. -- Talk with your doctor about when it is safe to start Lipitor Thank you for using [facility] for your health care needs. Patient Instructions: Antibiotic Form, MRSA (Methicillin-Resistant Staphylococcus Aureus) (DC) Stand Alone Forms: General Discharge Information Follow-up/Referrals: Dee Dee Brewer MD [Primary Care Provider] - Call for Appointment Discharge Medications: New ferrous sulfate 325 mg (65 mg iron) Tablet,Delayed Release (Dr/Ec) 325 mg PO DAILY Qty: 30 1RF cyanocobalamin (vitamin B-12) [Vitamin B-12] 1,000 mcg Tablet 1,000 mcg PO QAM Qty: 30 1RF aspirin [Aspirin Childrens] 81 mg tablet,chewable 81 mg PO DAILY Qty: 30 0RF cefdinir 300 mg capsule 300 mg PO Q12H 4 Days Qty: 8 0RF Rx Instructions: start on 06/29/24 doxycycline hyclate 100 mg tablet 100 mg PO Q12H Qty: 9 0RF famotidine [Pepcid] 20 mg tablet 20 mg PO BID Qty: 60 0RF Continued alprazolam 1 mg tablet 1 mg PO TID hydrocodone-acetaminophen 5-325 mg tablet 1 tablet PO BID albuterol sulfate [ProAir HFA] 90 mcg/actuation HFA aerosol inhaler 1 puff INHALATION Q4H PRN (Reason: bronchospasm) Qty: 18 2RF Date of admission: 06/26/24 05:54 Primary Care Provider: Dee Dee Brewer Admitting Provider: Erich Leonard Attending physician on admission: Erich Leonard Condition: Stable Hospitalist MIPS Heart Failure (Exclusion) Patient has history of Heart Transplant or Left Ventricular Assistive Device?: No IF YES, STOP HERE Heart Failure (Qualifier) Patient has current or prior documentation of LVEF less than or equal to 40%, or mod/servere depressed LVSF?: No IF NO, STOP HERE
[2024-06-28 19:48] LABS: Pneumococcal Antigen Urine NOT DETECTED
[2024-06-29 22:39] LABS: Legionella pneumophila Ag Ur NOT DETECTED
[2024-07-01 05:44] LABS: Methylmalonic Acid 285 nmol/L (69-390)
--- NOTE | 2024-07-01 09:48 | PC.NURSE ---
Urine Legionella is not detected. Urine Pneumococcal is not detected. Dr. Wilman haq.
[2024-07-01 17:19] LABS: Mycoplasma IgM Antibody Titer 189 U/mL
== END 2024-06-28 16:53 | disposition home or self-care (01) ==
LOC: ANHED 05:54 → ANH3MEDSUR 08:03
PROVIDERS: Admitting Provider Internal Medicine; Emergency Provider Emergency Medicine; PCP Family Medicine; Visit Provider Internal Medicine
DX: A41.9 Sepsis, unspecified organism (principal); J18.9 Pneumonia, unspecified organism; R10.9 Unspecified abdominal pain; J45.909 Unspecified asthma, uncomplicated; F41.9 Anxiety disorder, unspecified; M54.9 Dorsalgia, unspecified; G89.29 Other chronic pain; D64.9 Anemia, unspecified; Z87.891 Personal history of nicotine dependence; Z79.51 Long term (current) use of inhaled steroids; Z79.891 Long term (current) use of opiate analgesic; Z20.822 Contact with and (suspected) exposure to COVID-19
CPT/HCPCS: 36415; 70450; 71045; 74176; 76705; 80053; 80074; 81001; 82565; 82607; 82728; 82746; 83540; 83550; 83605; 83690; 83735; 83921; 84145; 85014; 85018; 85025; 86738; 87040; 87449; 87637; 87641; 87899; 94640; 96361; 96365; 96366; 96367; 96372; 96375; 96376; 99285; A9270; G0378; J0456; J0696; J1650; J2270; J2405; J3370; J3420; J7030

== ENCOUNTER 2025-03-14 08:36 | Outpatient (CLI) | payer MEDICARE, SELFPAY ==
--- NOTE | ~2025-03-14 | CT_ITS ---
CT Scan of the Chest without Contrast: Clinical Indication: Lung cancer screening, nicotine dependence Technique: Contiguous sections were acquired throughout the chest without intravenous contrast. Dose reduction technique was used on this scan by utilizing automated exposure control and iterative reconstruction technique. The dose-length product (DLP) was 47.37 mGy-cm. COMPARISON: 09/20/2023 Findings: There is no evidence of any significant mediastinal, hilar or axillary lymphadenopathy. The mediastinal soft tissues appear normal. There is no evidence of pleural or pericardial effusion. Stable 6 mm lower lobe pulmonary nodule (axial image 52). Images through the upper abdomen reveal moderate hiatal hernia. Impression: Lung RADS 2: Benign appearance. 12 month follow-up screening CT advised. Reviewed, dictated and finalized at location . Impression: Lung RADS 2: Benign appearance. 12 month follow-up screening CT advised.
--- NOTE | ~2025-03-14 | DEXA_ITS ---
Bone Density Report Name: ELVIRA HARRINGTON Age: 74 Sex: Female Ethnicity: White Date of : 1950 Indication: postmenopausal osteoporosis; height loss; asthma or emphysema; rheumatoid arthritis; Referring Provider: ALLYSSA GARSIA Study: Bone densitometry was performed. Exam Date: March 14, 2025 Accession number: [id number] Bone Density: Region BMD T-score Z-score Classification AP Spine(L1, L2, L3) 0.795 -2.0 0.3 Osteopenia Femoral Neck (Left) 0.400 -4.0 -2.0 Osteoporosis Total Hip (Left) 0.499 -3.6 -1.9 Osteoporosis Femoral Neck (Right) 0.442 -3.7 -1.6 Osteoporosis Total Hip (Right) 0.532 -3.4 -1.6 Osteoporosis Total Hip Mean 0.516 -3.5 -1.8 Osteoporosis World Health Organization criteria for BMD impression classify patients as: Normal (T-score at or above -1.0), Osteopenia (T-score between -1.0 and -2.5), or Osteoporosis (T-score at or below -2.5). 10-year Fracture Risk: FRAX not reported because: Some T-score for Spine Total or Hip Total or Femoral Neck at or below -2.5 Previous Exams: -- Region Exam Age BMD T-score BMD Change BMD Change Date g/cm2 vs Baseline vs Previous -- AP Spine (L1-L3) 03/14/2025 74 0.795 -2.0 -1.7% -1.7% 02/27/2021 70 0.809 -1.9 Total Hip(Left) 03/14/2025 74 0.499 -3.6 -11.8%* -11.8%* 02/27/2021 70 0.565 -3.1 Total Hip(Right) 03/14/2025 74 0.532 -3.4 -10.4%* -10.4%* 02/27/2021 70 0.594 -2.9 -- *Denotes significance at 95% confidence level, LSC for AP Spine = 0.022 g/cm2, LSC for Total Hip = 0.027 g/cm2 Clinical Information Provided by Patient: Has rheumatoid arthritis Has the following medical conditions: Asthma or Emphysema Patient maximum height was 62 Menopause Age: 40 No regular weight bearing exercise Drinks caffeinated beverages Onset of menses at age 13 Number of children 2 Impression: The patient has osteoporosis, based on the Left Femoral Neck T-score. The BMD for the Total Hip(Left) decreased, changing by -11.8% since the last DXA exam. The BMD for the Total Hip(Right) decreased, changing by -10.4% since the last DXA exam. Discussion: HIGH RISK OF FRACTURE. BONE DENSITY IS UNDESIRABLY LOW AT ONE OR MORE SKELETAL SITES, CONSISTENT WITH OSTEOPOROSIS. ALSO, BONE DENSITY IS LOWER THAN EXPECTED FOR AGE AND SEX AT ONE OR MORE SKELETAL SITES; RECOMMEND A DILIGENT SEARCH FOR SECONDARY CAUSES OF BONE LOSS. This patient's lowest T-score meets the World Health Organization's (WHO) criteria for osteoporosis at one or more sites (T-score -2.5 or below). In untreated patients, the risk of osteoporotic fracture increases approximately two-fold for each 1.0 SD decrease in T-score. Low bone density is not the only risk factor for fracture; also consider factors such as patient's age, frailty or poor health, risk of falling, risk of injury, previous osteoporotic fracture, family history of osteoporosis, cigarette smoking, low body weight, etc. Not everyone with low bone mineral density has osteoporosis; osteomalacia and other metabolic bone disorders should also be considered. Patients who have osteoporosis should be evaluated for specific diseases and conditions (secondary causes) that may cause or contribute to bone loss. The [place] [employer] (AACE) and National Osteoporosis Foundation (NOF) recommend pharmacologic intervention for all postmenopausal women whose T-score is in this range. Also, this patient's bone mineral density is below the range considered normal for healthy age-, sex-, and race-matched controls at least one site (Z-score -2.0 or below). This warrants careful evaluation for diseases and conditions that may contribute to accelerated bone loss. The patient should follow a healthful lifestyle (good nutrition with adequate calcium and vitamin D, and appropriate weight-bearing exercise). Follow-Up: Consider a repeat BMD and Vertebral Fracture Assessment (VFA) exam in 2 years or sooner if medically necessary, to reassess this patient's status. Reported by: MELVINA on 03/14/2025 9:54:00 AM. Reviewed, dictated and finalized at location A.
== END 2025-03-14 08:37 | disposition home or self-care (01) ==
LOC: MICIMG 08:38
PROVIDERS: PCP Family Medicine; Visit Provider Family Medicine
DX: Z78.0 Asymptomatic menopausal state (principal); M81.0 Age-related osteoporosis without current pathological fracture; Z87.891 Personal history of nicotine dependence; M85.88 Other specified disorders of bone density and structure, other site
CPT/HCPCS: 71271; 77080